=== PATIENT | male | born 1940 | race African-American/Black ===

== ENCOUNTER → 2017-08-12 | Outpatient (CLI) | payer MEDICARE, MEDICAID ==
[~2017-08-12] MED LIST: ACET-3161 PO; ALLO100T PO; AMLO1CAP2 PO; BICA50TA2 PO; CARV6.2548 PO; DOXA2TAB2 PO
== END | disposition home or self-care (01) ==
LOC: CARD 09:55
PROVIDERS: ATTEND Psychiatry & Neurology Neurology
DX: F03.90 Unspecified dementia, unspecified severity, without behavioral disturbance, psychotic disturbance, mood disturbance, and anxiety (principal); I12.9 Hypertensive chronic kidney disease with stage 1 through stage 4 chronic kidney disease, or unspecified chronic kidney disease; N18.9 Chronic kidney disease, unspecified; Z85.46 Personal history of malignant neoplasm of prostate

== ENCOUNTER 2019-02-01 15:06 | Emergency (ER) | payer MEDICARE, MEDICAID ==
[~2019-02-01] VITALS: Ht 172.7 cm; Wt 64.0 kg
[~2019-02-01 15:06] MED LIST changes: -BICA50TA2 PO; +BICA50TA48 PO
[2019-02-01 16:39] LABS: CLARITY URINE CLEAR (CLEAR); COLOR URINE YELLOW (YELLOW); KETONES URINE NEGATIVE (NEGATIVE); LEUKOCYTE ESTERASE URINE TRACE (NEGATIVE); NITRITE URINE NEGATIVE (NEGATIVE); OCCULT BLOOD URINE NEGATIVE (NEGATIVE); PH URINE 8.5 (4.5-8.0); PROTEIN URINE 3+ (NEGATIVE); SPECIFIC GRAVITY URINE 1.008 (1.005-1.030); UROBILINOGEN URINE 0.2 E.U./dL (0.2-1.0)
[2019-02-01 17:19] LABS: BASOPHILS % 1.5 % (0.0-2.0); HEMATOCRIT. 25.8 % (42.0-52.0); HEMOGLOBIN. 8.5 g/dL (14.0-18.0); LYMPHOCYTES % 23.8 % (20.0-50.0); MEAN CORPUSCULAR HEMOGLOBIN 31.6 pg (28.0-32.0); MEAN CORPUSCULAR VOLUME 96.2 fL (80.0-94.0); MEAN PLATELET VOLUME 9.8 fl (7.4-10.4); MONOCYTES % 7.6 % (2.0-8.0); NEUTROPHILS % 65.1 % (40.0-76.0); PLATELET 159 x1000/uL (130-400); RED BLOOD CELL COUNT 2.68 mill/uL (4.7-6.1); RED CELL DISTRIBUTION WIDTH 16.7 % (11.6-14.6)
[2019-02-01 17:24] LABS: CHLORIDE 103 mEq/L (98-107)
[2019-02-01 17:28] LABS: INR 1.1
[2019-02-01] MEDS ORDERED: SODIUM CHLORIDE 0.9% 1000ML BAG (SEPSIS BOLUS) IV ONE (17:45)
[2019-02-01 21:31] VITALS: BP 140/71
== END 2019-02-01 21:33 | disposition home or self-care (01) ==
LOC: ER 15:06 → CANBEDREQ 22:06
DX: I12.0 Hypertensive chronic kidney disease with stage 5 chronic kidney disease or end stage renal disease (principal); I95.9 Hypotension, unspecified; N18.6 End stage renal disease; D63.1 Anemia in chronic kidney disease; F03.90 Unspecified dementia, unspecified severity, without behavioral disturbance, psychotic disturbance, mood disturbance, and anxiety; I25.10 Atherosclerotic heart disease of native coronary artery without angina pectoris; F17.210 Nicotine dependence, cigarettes, uncomplicated; Z85.9 Personal history of malignant neoplasm, unspecified; Z99.2 Dependence on renal dialysis; Z71.6 Tobacco abuse counseling
CPT/HCPCS: 36415; 71045; 80053; 81003; 83605; 84145; 84484; 85025; 85610; 87040; 87086; 93005; 99284; J7030

== ENCOUNTER → 2019-04-20 | Day surgery (SDC) | payer MEDICARE, MEDICAID ==
[~2019-04-20] VITALS: Ht 172.7 cm; Wt 56.7 kg
[~2019-04-20] MED LIST changes: +BACITRACIN 15GM TUBE TOP ONE; +BACITRACIN 50,000 UNITS/VIAL ONE; +BUPIVACAINE HCL/PF 0.5% (5MG/ML) 10ML ONE; +CALC-1042 PO; +CALC0.253 PO; +CEFAZOLIN SODIUM 1000MG/VIAL ONE; +CHOL500051 PO; +DOCU-272 PO; +DONE5TAB33 PO; +FENTANYL CITRATE/PF 50MCG/ML 2ML VIAL ONE; +FOLI-43 PO; +FURO40TA5 PO; +GABA-290 PO; +HEPARIN 1000 UNITS/ML 10ML ONE; +HEPARIN SODIUM 1,000 UNIT/1ML VIAL IV ONE; +LIDOCAINE HCL 1% 20ML VIAL (Pyxis) INJ ONE; +LIDOCAINE HCL/PF 1% 10 MG/ML 5ML VIAL ONE; +MAGN400C PO; +MIDAZOLAM HCL 2 MG/2 ML VIAL ONE; +NORMAL SALINE 0.9% 10 ML SYR ONE; +OMEP40CA34 PO; +PROPOFOL 200MG/20ML VIAL IV ONE; +SODI650T PO; +SODIUM CHLORIDE 0.9% 500 ML IV NR; +TAMS-11 PO; +THROMBIN (BOVINE) 5000 UNITS/VIAL TOP ONE
[2019-04-20 10:25] LABS: BASOPHILS % 1.3 % (0.0-2.0); EOSINOPHILS % 1.9 % (0.0-5.0); HEMATOCRIT. 44.9 % (42.0-52.0); HEMOGLOBIN. 14.7 g/dL (14.0-18.0); LYMPHOCYTES % 32.2 % (20.0-50.0); MEAN CORPUSCULAR HEMOGLOBIN 30.7 pg (28.0-32.0); MEAN CORPUSCULAR VOLUME 93.9 fL (80.0-94.0); MEAN PLATELET VOLUME 10.6 fl (7.4-10.4); NEUTROPHILS % 51.6 % (40.0-76.0); PLATELET 103 x1000/uL (130-400); RED BLOOD CELL COUNT 4.78 mill/uL (4.7-6.1); RED CELL DISTRIBUTION WIDTH 15.3 % (11.6-14.6)
[2019-04-20 10:40] LABS: PARTIAL THROMBOPLASTIN TIME 24.9 sec (23.4-31.0); PROTHROMBIN TIME 10.8 sec (9.6-11.0)
== END | disposition home or self-care (01) ==
LOC: OR 09:27
PROVIDERS: ATTEND Surgery Vascular Surgery
DX: I12.0 Hypertensive chronic kidney disease with stage 5 chronic kidney disease or end stage renal disease (principal); N18.6 End stage renal disease; M10.9 Gout, unspecified; K21.9 Gastro-esophageal reflux disease without esophagitis; I25.10 Atherosclerotic heart disease of native coronary artery without angina pectoris; F17.210 Nicotine dependence, cigarettes, uncomplicated; Z99.2 Dependence on renal dialysis; Z79.899 Other long term (current) drug therapy; Z72.89 Other problems related to lifestyle; Z82.49 Family history of ischemic heart disease and other diseases of the circulatory system
CPT/HCPCS: 36415; 36830; 71045; 80048; 85025; 85610; 85730; 93005; C1768; J0690; J1644; J2704; J3010; J3490; J7040; J2250

== ENCOUNTER 2019-06-26 00:02 | Emergency (ER) | payer MEDICARE, MEDICAID ==
[~2019-06-26] VITALS: Ht 172.7 cm; Wt 59.0 kg
[~2019-06-26 00:02] MED LIST changes: -BACITRACIN 15GM TUBE TOP ONE; -BACITRACIN 50,000 UNITS/VIAL ONE; -BICA50TA48 PO; -BUPIVACAINE HCL/PF 0.5% (5MG/ML) 10ML ONE; -CEFAZOLIN SODIUM 1000MG/VIAL ONE; -DOXA2TAB2 PO; -FENTANYL CITRATE/PF 50MCG/ML 2ML VIAL ONE; -HEPARIN 1000 UNITS/ML 10ML ONE; -HEPARIN SODIUM 1,000 UNIT/1ML VIAL IV ONE; -LIDOCAINE HCL 1% 20ML VIAL (Pyxis) INJ ONE; -LIDOCAINE HCL/PF 1% 10 MG/ML 5ML VIAL ONE; -MIDAZOLAM HCL 2 MG/2 ML VIAL ONE; -NORMAL SALINE 0.9% 10 ML SYR ONE; +OMEP40CA12 PO; -OMEP40CA34 PO; -PROPOFOL 200MG/20ML VIAL IV ONE; -SODIUM CHLORIDE 0.9% 500 ML IV NR; -THROMBIN (BOVINE) 5000 UNITS/VIAL TOP ONE
[2019-06-26 02:07] VITALS: BP 135/64
== END 2019-06-26 02:11 | disposition home or self-care (01) ==
LOC: ER 01:22
DX: T82.41XA Breakdown (mechanical) of vascular dialysis catheter, initial encounter (principal); Y83.2 Surgical operation with anastomosis, bypass or graft as the cause of abnormal reaction of the patient, or of later complication, without mention of misadventure at the time of the procedure; F03.90 Unspecified dementia, unspecified severity, without behavioral disturbance, psychotic disturbance, mood disturbance, and anxiety; M10.9 Gout, unspecified; N40.0 Benign prostatic hyperplasia without lower urinary tract symptoms; Y92.9 Unspecified place or not applicable; I12.0 Hypertensive chronic kidney disease with stage 5 chronic kidney disease or end stage renal disease; N18.6 End stage renal disease; Z99.2 Dependence on renal dialysis
CPT/HCPCS: 99283

== ENCOUNTER 2020-04-09 09:41 | Inpatient (IN) | payer MEDICARE, MEDICAID ==
[~2020-04-09] VITALS: Ht 172.7 cm; Wt 49.4 kg
[~2020-04-09 09:41] MED LIST changes: -ACET-3161 PO; -AMLO1CAP2 PO; +AZIT500T8 PO; -CARV6.2548 PO; -CHOL500051 PO; -DOCU-272 PO; +FERR325T23 PO; -FURO40TA5 PO; +LIPA1CAP27 PO; -SODI650T PO; -TAMS-11 PO; +VIT1CAPS26 PO
[2020-04-09 12:00] LABS: BASOPHILS % 0.9 % (0.0-2.0); EOSINOPHILS % 0.3 % (0.0-5.0); HEMATOCRIT. 38.4 % (42.0-52.0); HEMOGLOBIN. 12.3 g/dL (14.0-18.0); LYMPHOCYTES % 12.7 % (20.0-50.0); MEAN CORPUSCULAR HEMOGLOBIN 31.3 pg (28.0-32.0); MEAN CORPUSCULAR VOLUME 97.4 fL (80.0-94.0); MEAN PLATELET VOLUME 10.4 fl (7.4-10.4); MONOCYTES % 8.7 % (2.0-8.0); NEUTROPHILS % 77.4 % (40.0-76.0); PLATELET 107 x1000/uL (130-400); RED BLOOD CELL COUNT 3.94 mill/uL (4.7-6.1); RED CELL DISTRIBUTION WIDTH 16.4 % (11.6-14.6)
[2020-04-09 12:08] LABS: INR 1.1; PARTIAL THROMBOPLASTIN TIME 28.5 sec (23.4-31.0); PROTHROMBIN TIME 11.2 sec (9.6-11.0)
[2020-04-09 12:14] LABS: CHLORIDE 102 mEq/L (98-107)
[2020-04-09] MEDS ORDERED: CEFTRIAXONE 1 G PREMIX 50 ML IV ONE (12:15)
[2020-04-09] MEDS ORDERED: AZITHROMYCIN 500 MG in DEXT 5% WATER 250 ML IV ONE (12:15)
[2020-04-09] MEDS ORDERED: SODIUM BICARBONATE 8.4% 1 MEQ/ML 50ML SYR IV ONE (12:45)
[2020-04-09] MEDS ORDERED: SODIUM POLYSTYRENE SULFONATE 15 G/60 ML BOT PO ONE (12:45)
[2020-04-09] MEDS ORDERED: MEMA5TAB7 PO (14:40)
[2020-04-09] MEDS ORDERED: QUET50TA PO (14:40)
[2020-04-09] MEDS ORDERED: AMLO5TAB88 PO (14:40)
[2020-04-09] MEDS ORDERED: ONDANSETRON HCL 4MG/2ML INJ IV PRN (16:00)
[2020-04-09] MEDS ORDERED: ACETAMINOPHEN 325MG TABLET PO PRN (16:00)
[2020-04-09 20:00] VITALS: BP 110/77
[2020-04-09 21:00] VITALS: BP 110/77
[2020-04-09] MEDS ORDERED: TAMS-11 PO (22:31)
[2020-04-09] MEDS ORDERED: CALC1TAB99 PO (22:32)
[2020-04-09] MEDS ORDERED: ERGO2000 PO (22:34)
[2020-04-09] MEDS ORDERED: NUT.237L64 PO (22:38)
[2020-04-09] MEDS ORDERED: CYAN-50 INJ (22:38)
[2020-04-10] VITALS: BP 111/72
[2020-04-10 03:30] VITALS: BP 122/69
[2020-04-10 06:29] LABS: BASOPHILS % 1.5 % (0.0-2.0); EOSINOPHILS % 1.5 % (0.0-5.0); HEMATOCRIT. 36.4 % (42.0-52.0); HEMOGLOBIN. 11.5 g/dL (14.0-18.0); MEAN CORPUSCULAR HEMOGLOBIN 30.9 pg (28.0-32.0); MEAN CORPUSCULAR VOLUME 97.4 fL (80.0-94.0); MONOCYTES % 8.5 % (2.0-8.0); NEUTROPHILS % 68.5 % (40.0-76.0); PLATELET 110 x1000/uL (130-400); RED BLOOD CELL COUNT 3.73 mill/uL (4.7-6.1); RED CELL DISTRIBUTION WIDTH 16.3 % (11.6-14.6)
[2020-04-10 08:00] VITALS: BP 116/78
[2020-04-10] MEDS: DOCUSATE SODIUM 250MG CAPSULE PO SCH ×2 (09:00→09:13)
[2020-04-10] MEDS: PANTOPRAZOLE SODIUM 40 MG/VIAL IV SCH (09:13)
[2020-04-10 12:00] VITALS: BP 123/72
[2020-04-10] MEDS ORDERED: CEFTRIAXONE 1 G PREMIX 50 ML IV SCH (12:00)
[2020-04-10] MEDS: CEFTRIAXONE 1,000 MG in DEXTROSE 5% WATER 50 ML IV SCH (12:34)
[2020-04-10] MEDS: AZITHROMYCIN 250 MG TABLET PO SCH (12:34)
[2020-04-10 13:32] LABS: CHLORIDE 100 mEq/L (98-107)
[2020-04-10 14:43] LABS: HEPATITIS A AB IGM NEGATIVE (NEGATIVE)
[2020-04-10 16:00] VITALS: BP 123/77
[2020-04-10] MEDS: AMLODIPINE 5MG TABLET PO SCH (18:09)
[2020-04-10 20:00] VITALS: BP 115/65
[2020-04-11] VITALS: BP 129/74
[2020-04-11 04:00] VITALS: BP 121/70
[2020-04-11 08:00] VITALS: BP 123/69
[2020-04-11 08:20] LABS: BASOPHILS % 1.4 % (0.0-2.0); EOSINOPHILS % 1.9 % (0.0-5.0); HEMATOCRIT. 38.3 % (42.0-52.0); HEMOGLOBIN. 12.4 g/dL (14.0-18.0); LYMPHOCYTES % 23.4 % (20.0-50.0); MEAN CORPUSCULAR HEMOGLOBIN 31.1 pg (28.0-32.0); MEAN CORPUSCULAR VOLUME 96.4 fL (80.0-94.0); MEAN PLATELET VOLUME 9.9 fl (7.4-10.4); MONOCYTES % 13.5 % (2.0-8.0); NEUTROPHILS % 59.8 % (40.0-76.0); PLATELET 110 x1000/uL (130-400); RED BLOOD CELL COUNT 3.97 mill/uL (4.7-6.1); RED CELL DISTRIBUTION WIDTH 16.7 % (11.6-14.6)
[2020-04-11 09:07] LABS: FOLIC ACID (FOLATE) SERUM >20 ng/mL ng/mL (>5.38)
[2020-04-11 09:17] LABS: CHLORIDE 100 mEq/L (98-107)
[2020-04-11 09:18] LABS: VITAMIN B12 SERUM >2000 pg/mL pg/mL (211-911)
[2020-04-11] MEDS: DOCUSATE SODIUM 250MG CAPSULE PO SCH (10:10)
[2020-04-11] MEDS: PANTOPRAZOLE SODIUM 40 MG/VIAL IV SCH (10:10)
[2020-04-11] MEDS: AMLODIPINE 5MG TABLET PO SCH (10:11)
[2020-04-11] MEDS: CEFTRIAXONE 1,000 MG in DEXTROSE 5% WATER 50 ML IV SCH (11:28)
[2020-04-11] MEDS: AZITHROMYCIN 250 MG TABLET PO SCH (11:28)
[2020-04-11 12:00] VITALS: BP 115/65
[2020-04-11 12:21] LABS: FERRITIN 1277 ng/mL (22-322)
[2020-04-11 16:00] VITALS: BP 118/21
[2020-04-11 20:00] VITALS: BP 120/65
[2020-04-11] MEDS ORDERED: QUETIAPINE FUMARATE 50MG TABLET PO SCH (23:29)
[2020-04-12] VITALS: BP 130/71
[2020-04-12 04:00] VITALS: BP 106/64
[2020-04-12 06:22] LABS: HEMOGLOBIN. 12.2 g/dL (14.0-18.0); MEAN CORPUSCULAR HEMOGLOBIN 31.4 pg (28.0-32.0); MEAN PLATELET VOLUME 10.5 fl (7.4-10.4); PLATELET 118 x1000/uL (130-400); RED BLOOD CELL COUNT 3.88 mill/uL (4.7-6.1); RED CELL DISTRIBUTION WIDTH 16.4 % (11.6-14.6)
[2020-04-12 08:00] VITALS: BP 116/67
[2020-04-12] MEDS ORDERED: DONEPEZIL HCL 5MG TABLET PO SCH (09:00)
[2020-04-12] MEDS: DOCUSATE SODIUM 250MG CAPSULE PO SCH (10:28)
[2020-04-12] MEDS: PANTOPRAZOLE SODIUM 40 MG/VIAL IV SCH (10:28)
[2020-04-12] MEDS: AMLODIPINE 5MG TABLET PO SCH (10:29)
[2020-04-12 10:48] LABS: PLATELET ESTIMATE SLIGHTLY DECREASED
[2020-04-12] MEDS: AZITHROMYCIN 250 MG TABLET PO SCH (11:38)
[2020-04-12] MEDS: CEFTRIAXONE 1,000 MG in DEXTROSE 5% WATER 50 ML IV SCH (11:38)
[2020-04-12 12:00] VITALS: BP 115/65
[2020-04-12] MEDS ORDERED: MEMANTINE HCL 5MG TABLET PO SCH (15:00)
[2020-04-12 16:00] VITALS: BP 116/66
[2020-04-12 17:40] VITALS: BP 116/66
[2020-04-12] MEDS ORDERED: QUETIAPINE FUMARATE 50MG TABLET PO SCH (21:00)
[2020-04-14 16:22] LABS: HEPATITIS B SURFACE ANTIGEN NEGATIVE
== END 2020-04-12 19:20 | disposition home or self-care (01) | DRG 377 ==
LOC: ER 09:59 → 7EST 17:57 → EDBEDREQ 18:04 → EDBEDREQTM 18:04 → ENRESERV 19:48 → 5WST 04-10 03:15
PROVIDERS: ADMIT Internal Medicine; ATTEND Internal Medicine
DX: K62.5 Hemorrhage of anus and rectum (principal); J18.9 Pneumonia, unspecified organism; N18.6 End stage renal disease; J96.00 Acute respiratory failure, unspecified whether with hypoxia or hypercapnia; E87.1 Hypo-osmolality and hyponatremia; K86.1 Other chronic pancreatitis; I12.0 Hypertensive chronic kidney disease with stage 5 chronic kidney disease or end stage renal disease; E44.1 Mild protein-calorie malnutrition; J90 Pleural effusion, not elsewhere classified; Z68.1 Body mass index [BMI] 19.9 or less, adult; E87.5 Hyperkalemia; K64.9 Unspecified hemorrhoids; D69.6 Thrombocytopenia, unspecified; K83.8 Other specified diseases of biliary tract; D53.9 Nutritional anemia, unspecified; F02.80 Dementia in other diseases classified elsewhere, unspecified severity, without behavioral disturbance, psychotic disturbance, mood disturbance, and anxiety; F10.10 Alcohol abuse, uncomplicated; G20 Parkinson's disease; K57.93 Diverticulitis of intestine, part unspecified, without perforation or abscess with bleeding; I25.10 Atherosclerotic heart disease of native coronary artery without angina pectoris; K57.90 Diverticulosis of intestine, part unspecified, without perforation or abscess without bleeding; Z20.828 Contact with and (suspected) exposure to other viral communicable diseases; Z99.2 Dependence on renal dialysis; Z85.46 Personal history of malignant neoplasm of prostate; Z79.899 Other long term (current) drug therapy
CPT/HCPCS: 36415; 71045; 76700; 80048; 80053; 80061; 82270; 82607; 82728; 82746; 83540; 83550; 83605; 83880; 84443; 84484; 85025; 86705; 86709; 86803; 86850; 86900; 87340; 93005; 93306; 96365; 97162; 99285; C1893; C9113; J0456; J0696; J3490; J7060; U0003

== ENCOUNTER 2021-06-14 09:57 | Inpatient (IN) | payer MEDICARE, MEDICAID ==
[~2021-06-14] VITALS: Ht 172.7 cm; Wt 63.7 kg
[~2021-06-14 09:57] MED LIST changes: +ASPI-1497 PO; -AZIT500T8 PO; +CLOP75TA33 MT; +CYAN-50 INJ; +ERGO2000 PO; -FERR325T23 PO; -LIPA1CAP27 PO; -MAGN400C PO; +MEMA5TAB7 PO; +METO25TA6 PO; -OMEP40CA12 PO; +OMEP40CA20 PO; +PHEN51CR24 TP; +QUET50TA PO; +TAMS-11 PO; -VIT1CAPS26 PO
[2021-06-14] MEDS ORDERED: SODIUM CHLORIDE 0.9% 1000ML BAG (SEPSIS BOLUS) IV ONE (10:30)
[2021-06-14 10:50] LABS: BASOPHILS % 0.7 % (0.0-2.0); HEMATOCRIT. 36.8 % (42.0-52.0); HEMOGLOBIN. 11.5 g/dL (14.0-18.0); MEAN CORPUSCULAR HEMOGLOBIN 28.8 pg (28.0-32.0); MEAN CORPUSCULAR VOLUME 92.3 fL (80.0-94.0); MEAN PLATELET VOLUME 9.3 fl (7.4-10.4); MONOCYTES % 5.8 % (2.0-8.0); NEUTROPHILS % 83.5 % (40.0-76.0); PLATELET 207 x1000/uL (130-400); RED BLOOD CELL COUNT 3.99 mill/uL (4.7-6.1); RED CELL DISTRIBUTION WIDTH 14.5 % (11.6-14.6)
[2021-06-14 10:56] LABS: CHLORIDE 98 mEq/L (98-107)
[2021-06-14] MEDS ORDERED: POTASSIUM CHLORIDE INJ 40 MEQ in DEXT 5% WATER 500 ML IV ONE (11:30)
[2021-06-14] MEDS ORDERED: VANCOMYCIN 1G PREMIX 200 ML IV ONE (11:30)
[2021-06-14] MEDS ORDERED: PIPERACILLIN/TAZ 3.375G PREMIX 50 ML IV ONE (11:30)
[2021-06-14] MEDS: KCL 20MEQ/100ML X 2 FOR TOTAL KCL 40MEQ/200ML IV SCH ×2 (11:45→13:45)
[2021-06-14] MEDS ORDERED: NOREPINEPHRINE 8MG/250ML PMX 250 ML IV STA (12:50)
[2021-06-14] MEDS ORDERED: NOREPINEPHRINE 8 MG in DEXTROSE 5% WATER 250 ML IV PRN (13:45)
[2021-06-14] MEDS ORDERED: DIPHENHYDRAMINE 50MG/ML VIAL IV PRN (17:15)
[2021-06-14] MEDS ORDERED: CLONIDINE 0.1MG TABLET PO PRN (17:15)
[2021-06-14] MEDS ORDERED: DEXT 5%/0.45% NACL 1000ML 1,000 ML IV SCH (17:15)
[2021-06-14] MEDS ORDERED: ONDANSETRON HCL 4MG/2ML INJ IV PRN (17:15)
[2021-06-14] MEDS ORDERED: ACETAMINOPHEN 325MG TABLET PO PRN ×2 (17:15)
[2021-06-14] MEDS: CEFEPIME 1,000 MG in DEXTROSE 5% WATER 50 ML IV SCH (20:48)
[2021-06-15 01:30] VITALS: BP 165/77
[2021-06-15 04:00] VITALS: BP 112/49
[2021-06-15 08:00] VITALS: BP 121/61
[2021-06-15 12:00] VITALS: BP 133/68
[2021-06-15] MEDS: VANCOMYCIN 1000MG/20ML ORAL SOLN PO SCH ×2 (12:31→18:22)
[2021-06-15] MEDS: DEXT 5%/0.45% NACL 1000ML 1,000 ML IV SCH (12:33)
[2021-06-15 12:53] LABS: BASOPHILS % 0.8 % (0.0-2.0); EOSINOPHILS % 1.9 % (0.0-5.0); HEMATOCRIT. 30.9 % (42.0-52.0); HEMOGLOBIN. 10.1 g/dL (14.0-18.0); LYMPHOCYTES % 7.7 % (20.0-50.0); MEAN CORPUSCULAR HEMOGLOBIN 29.8 pg (28.0-32.0); MEAN CORPUSCULAR VOLUME 90.9 fL (80.0-94.0); MEAN PLATELET VOLUME 9.5 fl (7.4-10.4); MONOCYTES % 7.9 % (2.0-8.0); NEUTROPHILS % 81.7 % (40.0-76.0); PLATELET 152 x1000/uL (130-400); RED CELL DISTRIBUTION WIDTH 14.3 % (11.6-14.6)
[2021-06-15] MEDS ORDERED: POTASSIUM CHLORIDE 20MEQ/PACKET PO NR (15:45)
[2021-06-15 16:00] VITALS: BP 147/85
[2021-06-15 20:00] VITALS: BP 96/49
[2021-06-15] MEDS: CEFEPIME 1,000 MG in DEXTROSE 5% WATER 50 ML IV SCH (21:07)
[2021-06-15] MEDS: CARVEDILOL 6.25 MG TABLET PO SCH (21:37)
[2021-06-16 00:05] VITALS: BP 124/65
[2021-06-16] MEDS: VANCOMYCIN 1000MG/20ML ORAL SOLN PO SCH ×4 (00:56→17:33)
[2021-06-16 04:00] VITALS: BP 120/78
[2021-06-16 08:00] VITALS: BP 149/79
[2021-06-16 08:29] LABS: BASOPHILS % 0.6 % (0.0-2.0); EOSINOPHILS % 2.3 % (0.0-5.0); HEMATOCRIT. 34.8 % (42.0-52.0); HEMOGLOBIN. 11.3 g/dL (14.0-18.0); LYMPHOCYTES % 8.5 % (20.0-50.0); MEAN CORPUSCULAR HEMOGLOBIN 29.8 pg (28.0-32.0); MEAN CORPUSCULAR VOLUME 91.6 fL (80.0-94.0); MEAN PLATELET VOLUME 9.6 fl (7.4-10.4); MONOCYTES % 7.9 % (2.0-8.0); NEUTROPHILS % 80.7 % (40.0-76.0); PLATELET 171 x1000/uL (130-400); RED CELL DISTRIBUTION WIDTH 14.1 % (11.6-14.6)
[2021-06-16] MEDS: CARVEDILOL 6.25 MG TABLET PO SCH ×2 (10:15→20:39)
[2021-06-16] MEDS: DEXT 5%/0.45% NACL 1000ML 1,000 ML IV SCH (10:17)
[2021-06-16 12:00] VITALS: BP 119/68
[2021-06-16 16:00] VITALS: BP 150/77
[2021-06-16 20:10] VITALS: BP 128/88
[2021-06-16] MEDS: CEFEPIME 1,000 MG in DEXTROSE 5% WATER 50 ML IV SCH (20:39)
[2021-06-16] MEDS ORDERED: AMIODARONE HCL 150 MG in DEXT 5% WATER 100 ML IV NR (23:00)
[2021-06-16] MEDS: AMIODARONE HCL 900 MG in DEXT 5% WATER 482 ML IV PRN (23:42)
[2021-06-17] VITALS (16 sets, daily range): BP systolic 97–159; BP diastolic 47–92
[2021-06-17] MEDS: VANCOMYCIN 1000MG/20ML ORAL SOLN PO SCH ×4 (00:08→18:23)
[2021-06-17 07:27] LABS: BASOPHILS % 0.6 % (0.0-2.0); EOSINOPHILS % 2.1 % (0.0-5.0); HEMOGLOBIN. 9.7 g/dL (14.0-18.0); LYMPHOCYTES % 9.7 % (20.0-50.0); MEAN CORPUSCULAR HEMOGLOBIN 28.7 pg (28.0-32.0); MEAN PLATELET VOLUME 9.5 fl (7.4-10.4); MONOCYTES % 7.8 % (2.0-8.0); NEUTROPHILS % 79.8 % (40.0-76.0); PLATELET 174 x1000/uL (130-400); RED BLOOD CELL COUNT 3.37 mill/uL (4.7-6.1); RED CELL DISTRIBUTION WIDTH 14.2 % (11.6-14.6)
[2021-06-17] MEDS: CARVEDILOL 12.5MG TABLET PO SCH ×2 (10:02→20:16)
[2021-06-17] MEDS: DEXT 5%/0.45% NACL 1000ML 1,000 ML IV SCH (10:11)
[2021-06-17] MEDS ORDERED: POTASSIUM CHLORIDE 20MEQ/PACKET PO NR (15:45)
[2021-06-17] MEDS: CEFEPIME 1,000 MG in DEXTROSE 5% WATER 50 ML IV SCH (20:16)
[2021-06-18] VITALS (14 sets, daily range): BP systolic 105–163; BP diastolic 47–82
[2021-06-18] MEDS: VANCOMYCIN 1000MG/20ML ORAL SOLN PO SCH ×5 (00:39→23:38)
[2021-06-18] MEDS: AMIODARONE HCL 900 MG in DEXT 5% WATER 482 ML IV PRN (02:30)
[2021-06-18 08:36] LABS: PHOSPHORUS 3.7 mg/dL (2.5-4.9)
[2021-06-18] MEDS: CARVEDILOL 12.5MG TABLET PO SCH ×2 (09:05→21:22)
[2021-06-18] MEDS ORDERED: POTASSIUM CHLORIDE 20MEQ TABLET SR PO NR (10:00)
[2021-06-18] MEDS: CEFEPIME 1,000 MG in DEXTROSE 5% WATER 50 ML IV SCH (21:22)
[2021-06-18] MEDS: EPOETIN ALFA-EPBX 10,000 UNIT/ML VIAL SUBCUT SCH (21:57)
[2021-06-19] VITALS (15 sets, daily range): BP systolic 107–169; BP diastolic 52–94
[2021-06-19] MEDS: VANCOMYCIN 1000MG/20ML ORAL SOLN PO SCH ×4 (05:50→23:05)
[2021-06-19] MEDS: CARVEDILOL 12.5MG TABLET PO SCH (08:07)
[2021-06-19] MEDS ORDERED: AMIODARONE HCL 200 MG TABLET PO SCH (11:30)
[2021-06-19 11:59] LABS: BASOPHILS % 0.8 % (0.0-2.0); EOSINOPHILS % 2.2 % (0.0-5.0); HEMATOCRIT. 29.8 % (42.0-52.0); HEMOGLOBIN. 9.9 g/dL (14.0-18.0); LYMPHOCYTES % 9.3 % (20.0-50.0); MEAN CORPUSCULAR VOLUME 90.5 fL (80.0-94.0); MEAN PLATELET VOLUME 9.7 fl (7.4-10.4); MONOCYTES % 8.8 % (2.0-8.0); NEUTROPHILS % 78.9 % (40.0-76.0); PLATELET 177 x1000/uL (130-400); RED BLOOD CELL COUNT 3.29 mill/uL (4.7-6.1); RED CELL DISTRIBUTION WIDTH 14.8 % (11.6-14.6)
[2021-06-19] MEDS ORDERED: SOTALOL HCL 80MG TABLET PO NR ×2 (12:30→16:30)
[2021-06-19] MEDS: CEFEPIME 1,000 MG in DEXTROSE 5% WATER 50 ML IV SCH (21:11)
[2021-06-19] MEDS: SOTALOL HCL 80MG TABLET PO SCH (21:11)
[2021-06-20] VITALS (16 sets, daily range): BP systolic 98–158; BP diastolic 43–81
[2021-06-20] MEDS: VANCOMYCIN 1000MG/20ML ORAL SOLN PO SCH ×3 (05:26→17:38)
[2021-06-20] MEDS: SOTALOL HCL 80MG TABLET PO SCH ×2 (08:57→20:09)
[2021-06-20] MEDS ORDERED: DONEPEZIL HCL 5MG TABLET PO SCH (15:45)
[2021-06-20] MEDS ORDERED: QUETIAPINE FUMARATE 50MG TABLET PO SCH (15:45)
[2021-06-20] MEDS ORDERED: MEMANTINE HCL 5MG TABLET PO SCH (15:45)
[2021-06-20] MEDS ORDERED: SOTA80TA MT (17:27)
[2021-06-20] MEDS: CEFEPIME 1,000 MG in DEXTROSE 5% WATER 50 ML IV SCH (19:30)
[2021-06-20] MEDS: EPOETIN ALFA-EPBX 10,000 UNIT/ML VIAL SUBCUT SCH (20:08)
== END 2021-06-20 23:23 | disposition home or self-care (01) | DRG 70 ==
LOC: ER 10:04 → EDBEDREQTM 12:34 → EDBEDREQSVC 13:35 → EDBEDREQ 13:35 → MICUSO 15:40 → 8WST 06-15 01:00 → 3WST 06-16 23:18
PROVIDERS: ADMIT Internal Medicine; ATTEND Internal Medicine
PROC: 05HY33Z Insertion of Infusion Device into Upper Vein, Percutaneous Approach (ICD-10-PCS; principal; 2021-06-14)
PROC: B54MZZA Ultrasonography of Right Upper Extremity Veins, Guidance (ICD-10-PCS; 2021-06-14)
PROC: 3E1M39Z Irrigation of Peritoneal Cavity using Dialysate, Percutaneous Approach (ICD-10-PCS; 2021-06-18)
PROC: 3E1M39Z Irrigation of Peritoneal Cavity using Dialysate, Percutaneous Approach (ICD-10-PCS; 2021-06-20)
DX: G93.41 Metabolic encephalopathy (principal); N18.6 End stage renal disease; I50.43 Acute on chronic combined systolic (congestive) and diastolic (congestive) heart failure; E87.1 Hypo-osmolality and hyponatremia; I47.2 Ventricular tachycardia; I13.2 Hypertensive heart and chronic kidney disease with heart failure and with stage 5 chronic kidney disease, or end stage renal disease; I48.92 Unspecified atrial flutter; A09 Infectious gastroenteritis and colitis, unspecified; I48.91 Unspecified atrial fibrillation; Z20.822 Contact with and (suspected) exposure to COVID-19; E11.22 Type 2 diabetes mellitus with diabetic chronic kidney disease; E78.00 Pure hypercholesterolemia, unspecified; E87.6 Hypokalemia; F03.90 Unspecified dementia, unspecified severity, without behavioral disturbance, psychotic disturbance, mood disturbance, and anxiety; D64.9 Anemia, unspecified; I27.20 Pulmonary hypertension, unspecified; E78.5 Hyperlipidemia, unspecified; E88.09 Other disorders of plasma-protein metabolism, not elsewhere classified; I95.9 Hypotension, unspecified; Z99.2 Dependence on renal dialysis; Z79.899 Other long term (current) drug therapy; Z79.82 Long term (current) use of aspirin
CPT/HCPCS: 36415; 70490; 71045; 76937; 80048; 80053; 83605; 83735; 84100; 84145; 84484; 85025; 87426; 93005; 93306; 99291; C1725; C1769; J0282; J0692; J0885; J2543; J3370; J3480; J7030; J7060

== ENCOUNTER 2021-07-02 10:26 | Inpatient (IN) | payer MEDICARE, MEDICAID ==
[~2021-07-02] VITALS: Ht 162.6 cm; Wt 68.6 kg
[~2021-07-02 10:26] MED LIST changes: +SOTA80TA MT
[2021-07-02 12:45] LABS: BASOPHILS % 0.3 % (0.0-2.0); EOSINOPHILS % 0.4 % (0.0-5.0); HEMATOCRIT. 38.5 % (42.0-52.0); HEMOGLOBIN. 11.9 g/dL (14.0-18.0); LYMPHOCYTES % 7.8 % (20.0-50.0); MEAN CORPUSCULAR HEMOGLOBIN 28.8 pg (28.0-32.0); MEAN CORPUSCULAR VOLUME 93.3 fL (80.0-94.0); MEAN PLATELET VOLUME 9.8 fl (7.4-10.4); MONOCYTES % 4.1 % (2.0-8.0); NEUTROPHILS % 87.4 % (40.0-76.0); PLATELET 203 x1000/uL (130-400); RED BLOOD CELL COUNT 4.12 mill/uL (4.7-6.1); RED CELL DISTRIBUTION WIDTH 16.2 % (11.6-14.6)
[2021-07-02 12:52] LABS: CHLORIDE 98 mEq/L (98-107)
[2021-07-02] MEDS ORDERED: [UNRECOGNIZED DRUG - REMARK] XX SCH (13:00)
[2021-07-02] MEDS ORDERED: VANCOMYCIN 1.25GM PMX (XELLIA) 250 ML IV NR (14:00)
[2021-07-02] MEDS ORDERED: NOREPINEPHRINE 8MG/250ML PMX 250 ML IV ONE (14:15)
[2021-07-02] MEDS ORDERED: ACETAMINOPHEN 325MG TABLET PO ONE (14:15)
[2021-07-02 14:24] LABS: BG BASE EXCESS -7.7 mmol/L (-2.0-2.0); BG CARBOXYHEMOGLOBIN 0.5 % (0.5-1.5); BG DEOXYHEMOGLOBIN 2.5 % (0.0-5.0); BG FRACTION INSPIRED OXYGEN 36; BG HCO3 ACT 17.2 mmol/L (22.0-26.0); BG METHEMOGLOBIN 0.2 % (0.0-1.5); BG OXYGEN SATURATION 97.5 % (92.0-98.5); BG OXYHEMOGLOBIN 96.8 % (94.0-97.0); BG PH 7.335 (7.350-7.450); BG PO2 103.6 mmHg (75.0-100.0); BG SAMPLE SITE RIGHT RADIAL; BG TOTAL HEMOGLOBIN 12.2 g/dL (12.0-18.0); BG VENT MODE NASAL CANNULA
[2021-07-02] MEDS ORDERED: CEFEPIME 500 MG in DEXTROSE 5% WATER 50 ML IV SCH (16:00)
[2021-07-02] MEDS ORDERED: KETAMINE HCL 50 MG/ML 10ML IV ONE (16:15)
[2021-07-02] MEDS ORDERED: DOCUSATE SODIUM 100MG CAPSULE PO PRN (17:15)
[2021-07-02] MEDS ORDERED: GUAIFENESIN 200MG/10ML SUGAR FREE UDC PO PRN (17:15)
[2021-07-02] MEDS ORDERED: IPRATROPIUM/ALBUTEROL 0.5-3(2.5)MG/3ML NEB HHN PRN (17:15)
[2021-07-03] VITALS (71 sets, daily range): BP systolic 52–162; BP diastolic 24–106
[2021-07-03 05:23] LABS: HEMATOCRIT. 42.6 % (42.0-52.0); HEMOGLOBIN. 13.2 g/dL (14.0-18.0); MEAN CORPUSCULAR HEMOGLOBIN 29.3 pg (28.0-32.0); MEAN CORPUSCULAR VOLUME 94.9 fL (80.0-94.0); MEAN PLATELET VOLUME 10.3 fl (7.4-10.4); PLATELET 187 x1000/uL (130-400); RED BLOOD CELL COUNT 4.49 mill/uL (4.7-6.1); RED CELL DISTRIBUTION WIDTH 16.1 % (11.6-14.6)
[2021-07-03 05:51] LABS: PHOSPHORUS 8.7 mg/dL (2.5-4.9)
[2021-07-03] MEDS: NOREPINEPHRINE 8 MG in DEXTROSE 5% WATER 250 ML IV PRN ×2 (07:24→15:30)
[2021-07-03] MEDS: MEMANTINE HCL 5MG TABLET PO SCH (12:07)
[2021-07-03] MEDS: CLOPIDOGREL 75MG TABLET PO SCH (12:07)
[2021-07-03 12:53] LABS: PLATELET ESTIMATE NORMAL
[2021-07-03] MEDS ORDERED: CEFEPIME 500 MG in DEXTROSE 5% WATER 50 ML IV SCH ×2 (17:00→21:00)
[2021-07-03] MEDS: METRONIDAZOLE 250MG TABLET PO SCH ×2 (18:11→21:10)
[2021-07-03] MEDS: MICAFUNGIN 100 MG in SODIUM CHLORIDE 0.9% 100 ML IV SCH (18:11)
[2021-07-03] MEDS: CEFEPIME 1,000 MG in DEXTROSE 5% WATER 50 ML IV SCH (21:10)
[2021-07-04] VITALS (99 sets, daily range): BP systolic 67–175; BP diastolic 33–156
[2021-07-04] MEDS: NOREPINEPHRINE 8 MG in DEXTROSE 5% WATER 250 ML IV PRN ×3 (02:22→23:45)
[2021-07-04] MEDS: METRONIDAZOLE 250MG TABLET PO SCH ×3 (05:24→21:08)
[2021-07-04 06:39] LABS: HEMATOCRIT. 33.1 % (42.0-52.0); HEMOGLOBIN. 10.7 g/dL (14.0-18.0); MEAN CORPUSCULAR HEMOGLOBIN 29.5 pg (28.0-32.0); MEAN CORPUSCULAR VOLUME 91.1 fL (80.0-94.0); MEAN PLATELET VOLUME 9.7 fl (7.4-10.4); PLATELET 228 x1000/uL (130-400); RED BLOOD CELL COUNT 3.64 mill/uL (4.7-6.1); RED CELL DISTRIBUTION WIDTH 15.4 % (11.6-14.6)
[2021-07-04] MEDS: MEMANTINE HCL 5MG TABLET PO SCH (08:38)
[2021-07-04] MEDS: CLOPIDOGREL 75MG TABLET PO SCH (08:38)
[2021-07-04] MEDS ORDERED: POTASSIUM CHLORIDE 20MEQ/PACKET PO NR (09:30)
[2021-07-04] MEDS ORDERED: VASOPRESSIN 20 UNIT in SODIUM CHLORIDE 0.9% 99 ML IV PRN (11:45)
[2021-07-04] MEDS: MIDODRINE HCL 5MG TABLET PO SCH ×2 (13:59→17:09)
[2021-07-04 15:19] LABS: NUCLEATED RED BLOOD CELLS 1 /100 WBC
[2021-07-04 15:20] LABS: PLATELET ESTIMATE NORMAL
[2021-07-04] MEDS: MICAFUNGIN 100 MG in SODIUM CHLORIDE 0.9% 100 ML IV SCH (17:08)
[2021-07-04] MEDS: CEFEPIME 1,000 MG in DEXTROSE 5% WATER 50 ML IV SCH (21:08)
[2021-07-04] MEDS: ACETAMINOPHEN 325MG TABLET PO PRN (21:09)
[2021-07-05] VITALS (93 sets, daily range): BP systolic 52–143; BP diastolic 19–85
[2021-07-05] MEDS: METRONIDAZOLE 250MG TABLET PO SCH (05:12)
[2021-07-05 06:10] LABS: HEMATOCRIT. 33.4 % (42.0-52.0); HEMOGLOBIN. 10.8 g/dL (14.0-18.0); MEAN CORPUSCULAR HEMOGLOBIN 29.4 pg (28.0-32.0); MEAN PLATELET VOLUME 9.6 fl (7.4-10.4); PLATELET 239 x1000/uL (130-400); RED BLOOD CELL COUNT 3.67 mill/uL (4.7-6.1); RED CELL DISTRIBUTION WIDTH 16.1 % (11.6-14.6)
[2021-07-05] MEDS: ONDANSETRON HCL 4MG/2ML INJ IV PRN (06:59)
[2021-07-05] MEDS: MEMANTINE HCL 5MG TABLET PO SCH ×2 (09:00→09:35)
[2021-07-05] MEDS: CLOPIDOGREL 75MG TABLET PO SCH ×2 (09:00→09:35)
[2021-07-05] MEDS: MIDODRINE HCL 5MG TABLET PO SCH ×4 (09:00→17:00)
[2021-07-05 09:03] LABS: PLATELET ESTIMATE NORMAL
[2021-07-05] MEDS: MICAFUNGIN 100 MG in SODIUM CHLORIDE 0.9% 100 ML IV SCH (17:10)
[2021-07-05] MEDS: PIPERACILLIN/TAZOBACTAM 3.375 G in DEXTROSE 5% WATER 50 ML IV SCH ×2 (17:10→23:13)
[2021-07-05] MEDS: NOREPINEPHRINE 8 MG in DEXTROSE 5% WATER 250 ML IV PRN (22:09)
[2021-07-06] VITALS (91 sets, daily range): BP systolic 80–145; BP diastolic 42–101
[2021-07-06] MEDS: ONDANSETRON HCL 4MG/2ML INJ IV PRN ×2 (00:11→09:28)
[2021-07-06 06:51] LABS: HEMATOCRIT. 31.8 % (42.0-52.0); HEMOGLOBIN. 10.4 g/dL (14.0-18.0); MEAN CORPUSCULAR HEMOGLOBIN 29.3 pg (28.0-32.0); MEAN CORPUSCULAR VOLUME 89.8 fL (80.0-94.0); MEAN PLATELET VOLUME 9.9 fl (7.4-10.4); PLATELET 221 x1000/uL (130-400); RED BLOOD CELL COUNT 3.54 mill/uL (4.7-6.1); RED CELL DISTRIBUTION WIDTH 16.3 % (11.6-14.6)
[2021-07-06] MEDS: MEMANTINE HCL 5MG TABLET PO SCH (09:00)
[2021-07-06] MEDS: MIDODRINE HCL 5MG TABLET PO SCH ×3 (09:00→17:00)
[2021-07-06] MEDS: CLOPIDOGREL 75MG TABLET PO SCH (09:00)
[2021-07-06] MEDS ORDERED: PANTOPRAZOLE SODIUM 40 MG/VIAL IV SCH (09:00)
[2021-07-06] MEDS: PIPERACILLIN/TAZOBACTAM 3.375 G in DEXTROSE 5% WATER 50 ML IV SCH ×2 (09:28→20:43)
[2021-07-06] MEDS ORDERED: DEXT 5%/LACTATED RINGERS 1,000 ML IV SCH (11:00)
[2021-07-06] MEDS ORDERED: DIATR MEGLU/DIATRIZOATE SOLN 30ML PO ONE (11:30)
[2021-07-06] MEDS: DEXT 5%/0.9% NACL 1,000 ML IV SCH (11:35)
[2021-07-06 13:23] LABS: NUCLEATED RED BLOOD CELLS 3 /100 WBC; PLATELET ESTIMATE NORMAL
[2021-07-06] MEDS: METOCLOPRAMIDE HCL 10MG/2ML VIAL IV SCH ×2 (18:23→23:13)
[2021-07-06] MEDS: PANTOPRAZOLE SODIUM 40 MG/VIAL IV SCH (18:23)
[2021-07-06] MEDS: MICAFUNGIN 100 MG in SODIUM CHLORIDE 0.9% 100 ML IV SCH (18:23)
[2021-07-07] VITALS (89 sets, daily range): BP systolic 97–162; BP diastolic 42–100
[2021-07-07] MEDS: DEXT 5%/0.9% NACL 1,000 ML IV SCH ×2 (05:09→22:03)
[2021-07-07] MEDS: METOCLOPRAMIDE HCL 10MG/2ML VIAL IV SCH ×3 (05:13→17:26)
[2021-07-07 06:47] LABS: HEMATOCRIT. 29.4 % (42.0-52.0); HEMOGLOBIN. 9.6 g/dL (14.0-18.0); MEAN CORPUSCULAR HEMOGLOBIN 29.6 pg (28.0-32.0); MEAN CORPUSCULAR VOLUME 90.8 fL (80.0-94.0); MEAN PLATELET VOLUME 9.4 fl (7.4-10.4); PLATELET 202 x1000/uL (130-400); RED BLOOD CELL COUNT 3.24 mill/uL (4.7-6.1); RED CELL DISTRIBUTION WIDTH 15.8 % (11.6-14.6)
[2021-07-07 06:54] LABS: INR 1.7; PROTHROMBIN TIME 17.3 sec (9.6-11.0)
[2021-07-07 07:30] LABS: HEPATITIS B SURFACE ANTIGEN NEGATIVE
[2021-07-07 08:40] LABS: PLATELET ESTIMATE NORMAL
[2021-07-07] MEDS: CLOPIDOGREL 75MG TABLET PO SCH (09:00)
[2021-07-07] MEDS: MEMANTINE HCL 5MG TABLET PO SCH (09:00)
[2021-07-07] MEDS: MIDODRINE HCL 5MG TABLET PO SCH ×3 (09:00→17:00)
[2021-07-07] MEDS: PIPERACILLIN/TAZOBACTAM 3.375 G in DEXTROSE 5% WATER 50 ML IV SCH ×2 (09:07→20:40)
[2021-07-07] MEDS: PANTOPRAZOLE SODIUM 40 MG/VIAL IV SCH ×2 (09:07→17:26)
[2021-07-07] MEDS: LORAZEPAM 2MG/ML CPJ IV PRN (09:11)
[2021-07-07] MEDS: KCL 20MEQ/100ML PREMIX 100 ML IV SCH ×2 (09:12→10:54)
[2021-07-07] MEDS ORDERED: NALOXONE HCL 0.4MG/ML VIAL IV PRN (10:45)
[2021-07-07] MEDS: MORPHINE SULFATE 2 MG/ML CPJ (NOT FOR IM USE) IV PRN ×2 (10:54→17:27)
[2021-07-07 11:19] LABS: CARCINO EMBRYONIC ANTIGEN < 0.5 ng/ml
[2021-07-07] MEDS: MICAFUNGIN 100 MG in SODIUM CHLORIDE 0.9% 100 ML IV SCH (17:27)
[2021-07-08] VITALS (40 sets, daily range): BP systolic 126–170; BP diastolic 55–99
[2021-07-08] MEDS: METOCLOPRAMIDE HCL 10MG/2ML VIAL IV SCH ×3 (00:16→11:40)
[2021-07-08 05:45] LABS: HEMATOCRIT. 32.7 % (42.0-52.0); HEMOGLOBIN. 10.4 g/dL (14.0-18.0); MEAN CORPUSCULAR HEMOGLOBIN 29.2 pg (28.0-32.0); MEAN CORPUSCULAR VOLUME 91.8 fL (80.0-94.0); MEAN PLATELET VOLUME 9.7 fl (7.4-10.4); PLATELET 206 x1000/uL (130-400); RED BLOOD CELL COUNT 3.56 mill/uL (4.7-6.1); RED CELL DISTRIBUTION WIDTH 16.4 % (11.6-14.6)
[2021-07-08] MEDS ORDERED: POTASSIUM CHLORIDE 20MEQ TABLET SR PO SCH (07:30)
[2021-07-08] MEDS: PIPERACILLIN/TAZOBACTAM 3.375 G in DEXTROSE 5% WATER 50 ML IV SCH ×2 (08:27→21:06)
[2021-07-08] MEDS: MEMANTINE HCL 5MG TABLET PO SCH (08:27)
[2021-07-08] MEDS: CLOPIDOGREL 75MG TABLET PO SCH (08:27)
[2021-07-08] MEDS: PANTOPRAZOLE SODIUM 40 MG/VIAL IV SCH ×2 (08:27→20:16)
[2021-07-08] MEDS: MIDODRINE HCL 5MG TABLET PO SCH ×3 (08:27→20:16)
[2021-07-08 10:01] LABS: PLATELET ESTIMATE NORMAL
[2021-07-08] MEDS: DEXT 5%/0.9% NACL 1,000 ML IV SCH (11:40)
[2021-07-08] MEDS: MICAFUNGIN 100 MG in SODIUM CHLORIDE 0.9% 100 ML IV SCH (15:31)
[2021-07-09] VITALS (13 sets, daily range): BP systolic 127–147; BP diastolic 65–82
[2021-07-09] MEDS: DEXT 5%/0.9% NACL 1,000 ML IV SCH ×2 (04:32→23:13)
[2021-07-09 06:03] LABS: HEMATOCRIT. 26.9 % (42.0-52.0); HEMOGLOBIN. 8.6 g/dL (14.0-18.0); MEAN CORPUSCULAR HEMOGLOBIN 28.8 pg (28.0-32.0); MEAN CORPUSCULAR VOLUME 90.6 fL (80.0-94.0); MEAN PLATELET VOLUME 9.6 fl (7.4-10.4); PLATELET 181 x1000/uL (130-400); RED BLOOD CELL COUNT 2.97 mill/uL (4.7-6.1); RED CELL DISTRIBUTION WIDTH 16.7 % (11.6-14.6)
[2021-07-09] MEDS ORDERED: POTASSIUM CHLORIDE INJ 40 MEQ in DEXT 5% WATER 250 ML IV ONE (08:30)
[2021-07-09] MEDS: MEMANTINE HCL 5MG TABLET PO SCH (08:50)
[2021-07-09] MEDS: CLOPIDOGREL 75MG TABLET PO SCH (08:50)
[2021-07-09] MEDS: PIPERACILLIN/TAZOBACTAM 3.375 G in DEXTROSE 5% WATER 50 ML IV SCH ×2 (08:50→21:07)
[2021-07-09] MEDS: MIDODRINE HCL 5MG TABLET PO SCH ×3 (08:50→17:00)
[2021-07-09] MEDS: PANTOPRAZOLE SODIUM 40 MG/VIAL IV SCH ×3 (08:50→17:39)
[2021-07-09] MEDS ORDERED: ALTEPLASE 2MG/VIAL ITC NR (09:30)
[2021-07-09] MEDS ORDERED: MAGNESIUM 2 G PREMIX 50 ML IV NR (09:30)
[2021-07-09] MEDS: KCL 20MEQ/100ML X 2 FOR TOTAL KCL 40MEQ/200ML IV SCH ×2 (09:43→13:17)
[2021-07-09] MEDS ORDERED: VISCOUS LIDOCAINE 2% 15 ML UDC MM PRN (10:30)
[2021-07-09 13:42] LABS: PLATELET ESTIMATE NORMAL
[2021-07-09] MEDS ORDERED: KCL 20MEQ/100ML PREMIX 100 ML IV NR (14:30)
[2021-07-10] VITALS (12 sets, daily range): BP systolic 113–144; BP diastolic 68–85
[2021-07-10 06:41] LABS: HEMATOCRIT. 25.4 % (42.0-52.0); MEAN CORPUSCULAR HEMOGLOBIN 28.7 pg (28.0-32.0); MEAN CORPUSCULAR VOLUME 91.1 fL (80.0-94.0); PLATELET 170 x1000/uL (130-400); RED BLOOD CELL COUNT 2.79 mill/uL (4.7-6.1); RED CELL DISTRIBUTION WIDTH 16.8 % (11.6-14.6)
[2021-07-10 07:26] LABS: PHOSPHORUS 4.5 mg/dL (2.5-4.9)
[2021-07-10] MEDS: MIDODRINE HCL 5MG TABLET PO SCH (09:00)
[2021-07-10] MEDS: MEMANTINE HCL 5MG TABLET PO SCH (09:32)
[2021-07-10] MEDS: CLOPIDOGREL 75MG TABLET PO SCH (09:32)
[2021-07-10] MEDS: PANTOPRAZOLE SODIUM 40 MG/VIAL IV SCH ×2 (09:32→18:39)
[2021-07-10] MEDS: PIPERACILLIN/TAZOBACTAM 3.375 G in DEXTROSE 5% WATER 50 ML IV SCH ×2 (09:43→21:48)
[2021-07-10 10:12] LABS: INR 2.3; PROTHROMBIN TIME 23.5 sec (9.6-11.0)
[2021-07-10] MEDS ORDERED: PHYTONADIONE 10MG/ML AMP SUBCUT SCH (11:00)
[2021-07-10] MEDS ORDERED: LIDOCAINE HCL 1% 20ML VIAL (Pyxis) INJ ONE (11:02)
[2021-07-10] MEDS ORDERED: HEPARIN 1000 UNITS/ML 10ML ONE (11:02)
[2021-07-10 12:21] LABS: NUCLEATED RED BLOOD CELLS 3 /100 WBC; PLATELET ESTIMATE NORMAL
[2021-07-10] MEDS: SODIUM BICARBONATE 100 MEQ in DEXTROSE 5% WATER 1,000 ML IV SCH (12:31)
[2021-07-10] MEDS ORDERED: FLUCONAZOLE 100MG TABLET PO SCH (14:15)
[2021-07-10] MEDS ORDERED: HEPARIN SODIUM 1,000 UNIT/1ML VIAL IV NR (15:00)
[2021-07-10 15:08] LABS: HEPATITIS B SURFACE ANTIGEN NEGATIVE
[2021-07-10] MEDS ORDERED: FLUCONAZOLE 400MG/200ML BAG 200 ML IV NR (15:30)
[2021-07-10] MEDS: DEXT 5%/0.9% NACL 1,000 ML IV SCH (15:30)
[2021-07-10] MEDS: METOCLOPRAMIDE HCL 5MG TABLET PO SCH (18:39)
[2021-07-10] MEDS: MORPHINE SULFATE 2 MG/ML CPJ (NOT FOR IM USE) IV PRN (18:40)
[2021-07-11] VITALS (15 sets, daily range): BP systolic 121–156; BP diastolic 68–98
[2021-07-11] MEDS: METOCLOPRAMIDE HCL 5MG TABLET PO SCH ×3 (00:06→12:52)
[2021-07-11] MEDS: SODIUM BICARBONATE 100 MEQ in DEXTROSE 5% WATER 1,000 ML IV SCH (05:17)
[2021-07-11 06:45] LABS: BASOPHILS % 0.3 % (0.0-2.0); HEMATOCRIT. 24.4 % (42.0-52.0); HEMOGLOBIN. 7.8 g/dL (14.0-18.0); MEAN PLATELET VOLUME 10.3 fl (7.4-10.4); MONOCYTES % 8.5 % (2.0-8.0); NEUTROPHILS % 81.2 % (40.0-76.0); PLATELET 145 x1000/uL (130-400); RED BLOOD CELL COUNT 2.69 mill/uL (4.7-6.1); RED CELL DISTRIBUTION WIDTH 17.4 % (11.6-14.6)
[2021-07-11] MEDS: MEMANTINE HCL 5MG TABLET PO SCH (09:06)
[2021-07-11] MEDS: PANTOPRAZOLE SODIUM 40 MG/VIAL IV SCH ×2 (09:06→18:41)
[2021-07-11] MEDS: DEXT 5%/0.45% NACL 1000ML 1,000 ML IV SCH (09:06)
[2021-07-11] MEDS: LORAZEPAM 2MG/ML CPJ IV PRN (11:46)
[2021-07-11] MEDS: FLUCONAZOLE 200 MG/100ML BAG 100 ML IV SCH (12:53)
[2021-07-11] MEDS ORDERED: FLUCONAZOLE 200 MG/100ML BAG 100 ML IV SCH (15:30)
[2021-07-11 15:56] LABS: INR 1.7; PROTHROMBIN TIME 17.2 sec (9.6-11.0)
[2021-07-11] MEDS ORDERED: PHYTONADIONE 10MG/ML AMP SUBCUT NR (18:30)
[2021-07-11] MEDS: METOCLOPRAMIDE HCL 10MG/2ML VIAL IV SCH (18:41)
[2021-07-11] MEDS: SOTALOL HCL 80MG TABLET PO SCH (21:15)
[2021-07-12] VITALS (16 sets, daily range): BP systolic 107–160; BP diastolic 51–103
[2021-07-12] MEDS: METOCLOPRAMIDE HCL 10MG/2ML VIAL IV SCH ×5 (00:16→23:25)
[2021-07-12 06:43] LABS: PHOSPHORUS 6.8 mg/dL (2.5-4.9)
[2021-07-12 06:48] LABS: BASOPHILS % 0.2 % (0.0-2.0); EOSINOPHILS % 0.2 % (0.0-5.0); HEMATOCRIT. 24.3 % (42.0-52.0); HEMOGLOBIN. 7.6 g/dL (14.0-18.0); LYMPHOCYTES % 8.4 % (20.0-50.0); MEAN CORPUSCULAR HEMOGLOBIN 29.2 pg (28.0-32.0); MEAN CORPUSCULAR VOLUME 93.4 fL (80.0-94.0); MEAN PLATELET VOLUME 10.9 fl (7.4-10.4); MONOCYTES % 6.5 % (2.0-8.0); NEUTROPHILS % 84.7 % (40.0-76.0); PLATELET 144 x1000/uL (130-400); RED CELL DISTRIBUTION WIDTH 17.7 % (11.6-14.6)
[2021-07-12 06:52] LABS: INR 1.9; PARTIAL THROMBOPLASTIN TIME 38.5 sec (23.4-31.0); PROTHROMBIN TIME 19.2 sec (9.6-11.0)
[2021-07-12] MEDS ORDERED: DEXTROSE 50% WATER 50ML SYRINGE IV SCH (07:00)
[2021-07-12] MEDS: SOTALOL HCL 80MG TABLET PO SCH ×2 (08:45→20:58)
[2021-07-12] MEDS: PANTOPRAZOLE SODIUM 40 MG/VIAL IV SCH ×2 (08:46→17:00)
[2021-07-12] MEDS: DEXT 5%/0.45% NACL 1000ML 1,000 ML IV SCH (08:46)
[2021-07-12] MEDS: MEMANTINE HCL 5MG TABLET PO SCH (08:46)
[2021-07-12] MEDS: FLUCONAZOLE 200 MG/100ML BAG 100 ML IV SCH (14:00)
[2021-07-12] MEDS ORDERED: PHYTONADIONE 10MG/ML AMP SUBCUT NR (18:30)
[2021-07-12] MEDS ORDERED: AZITHROMYCIN 500 MG TABLET PO NR (19:30)
[2021-07-12] MEDS: ACETAMINOPHEN 325MG TABLET PO PRN (21:45)
[2021-07-12] MEDS ORDERED: TRAMADOL 50MG TABLET PO PRN (22:45)
[2021-07-12] MEDS ORDERED: MAGNESIUM/ALUMINUM HYDROXIDE/SIMETHICONE 30ML UDC PO PRN (22:45)
[2021-07-12] MEDS: DEXTROSE 50% WATER 50ML SYRINGE IV PRN (23:01)
[2021-07-13] VITALS (13 sets, daily range): BP systolic 105–145; BP diastolic 62–95
[2021-07-13] MEDS: BLOOD SUGAR DIAGNOSTIC STRIP TEST SCH ×4 (06:06→21:38)
[2021-07-13] MEDS: METOCLOPRAMIDE HCL 10MG/2ML VIAL IV SCH ×3 (06:06→17:48)
[2021-07-13 06:31] LABS: BASOPHILS % 0.3 % (0.0-2.0); EOSINOPHILS % 0.4 % (0.0-5.0); HEMATOCRIT. 24.5 % (42.0-52.0); HEMOGLOBIN. 7.5 g/dL (14.0-18.0); MEAN PLATELET VOLUME 11.2 fl (7.4-10.4); MONOCYTES % 4.2 % (2.0-8.0); NEUTROPHILS % 85.1 % (40.0-76.0); PLATELET 151 x1000/uL (130-400); RED BLOOD CELL COUNT 2.61 mill/uL (4.7-6.1); RED CELL DISTRIBUTION WIDTH 18.5 % (11.6-14.6)
[2021-07-13 06:39] LABS: INR 2.1; PROTHROMBIN TIME 20.9 sec (9.6-11.0)
[2021-07-13] MEDS ORDERED: PHYTONADIONE 10MG/ML AMP SUBCUT NR (08:00)
[2021-07-13] MEDS: MEMANTINE HCL 5MG TABLET PO SCH (08:27)
[2021-07-13] MEDS: PANTOPRAZOLE SODIUM 40 MG/VIAL IV SCH ×2 (08:27→17:48)
[2021-07-13] MEDS: DEXT 5%/0.45% NACL 1000ML 1,000 ML IV SCH (08:28)
[2021-07-13] MEDS: SOTALOL HCL 80MG TABLET PO SCH ×2 (08:59→21:00)
[2021-07-13] MEDS: FLUCONAZOLE 200 MG/100ML BAG 100 ML IV SCH (14:57)
[2021-07-13] MEDS ORDERED: EPOETIN ALFA-EPBX 4,000 UNIT/ML VIAL SUBCUT SCH (21:00)
[2021-07-14] VITALS (16 sets, daily range): BP systolic 120–157; BP diastolic 68–81
[2021-07-14] MEDS: METOCLOPRAMIDE HCL 10MG/2ML VIAL IV SCH ×5 (00:34→23:15)
[2021-07-14] MEDS: BLOOD SUGAR DIAGNOSTIC STRIP TEST SCH ×4 (05:53→21:03)
[2021-07-14 06:24] LABS: BASOPHILS % 0.3 % (0.0-2.0); EOSINOPHILS % 0.5 % (0.0-5.0); HEMATOCRIT. 29.6 % (42.0-52.0); LYMPHOCYTES % 8.5 % (20.0-50.0); MEAN CORPUSCULAR HEMOGLOBIN 29.3 pg (28.0-32.0); MEAN CORPUSCULAR VOLUME 91.9 fL (80.0-94.0); MEAN PLATELET VOLUME 10.8 fl (7.4-10.4); MONOCYTES % 3.6 % (2.0-8.0); NEUTROPHILS % 87.1 % (40.0-76.0); PLATELET 147 x1000/uL (130-400); RED BLOOD CELL COUNT 3.22 mill/uL (4.7-6.1); RED CELL DISTRIBUTION WIDTH 17.1 % (11.6-14.6)
[2021-07-14] MEDS: DEXTROSE 50% WATER 50ML SYRINGE IV PRN (06:25)
[2021-07-14 06:53] LABS: HEMOGLOBIN. 9.5 g/dL (14.0-18.0)
[2021-07-14] MEDS: SOTALOL HCL 80MG TABLET PO SCH ×2 (08:42→21:00)
[2021-07-14] MEDS: PANTOPRAZOLE SODIUM 40 MG/VIAL IV SCH ×2 (08:46→17:22)
[2021-07-14] MEDS: DEXT 5%/0.45% NACL 1000ML 1,000 ML IV SCH (08:46)
[2021-07-14] MEDS: MEMANTINE HCL 5MG TABLET PO SCH (09:00)
[2021-07-14 11:17] LABS: INR 1.7; PARTIAL THROMBOPLASTIN TIME 37.9 sec (23.4-31.0); PROTHROMBIN TIME 17.9 sec (9.6-11.0)
[2021-07-14] MEDS ORDERED: GLYCOPYRROLATE 0.2 MG/ML 2ML VIAL ONE (13:17)
[2021-07-14] MEDS ORDERED: BUPIVACAINE HCL/PF 0.5% (5MG/ML) 10ML ONE (13:30)
[2021-07-14] MEDS ORDERED: LIDOCAINE HCL 1% 20ML VIAL (Pyxis) INJ ONE (13:30)
[2021-07-14] MEDS: LACTULOSE 20G/30ML UDC PO SCH ×2 (14:00→22:48)
[2021-07-14] MEDS: FLUCONAZOLE 200 MG/100ML BAG 100 ML IV SCH (15:53)
[2021-07-15] VITALS (11 sets, daily range): BP systolic 125–140; BP diastolic 22–81
[2021-07-15] MEDS: METOCLOPRAMIDE HCL 10MG/2ML VIAL IV SCH ×3 (05:58→17:53)
[2021-07-15] MEDS: BLOOD SUGAR DIAGNOSTIC STRIP TEST SCH ×4 (05:58→21:00)
[2021-07-15] MEDS: LACTULOSE 20G/30ML UDC PO SCH ×3 (05:58→22:00)
[2021-07-15 07:01] LABS: BASOPHILS % 0.3 % (0.0-2.0); EOSINOPHILS % 0.3 % (0.0-5.0); HEMATOCRIT. 28.4 % (42.0-52.0); LYMPHOCYTES % 8.7 % (20.0-50.0); MEAN CORPUSCULAR HEMOGLOBIN 29.4 pg (28.0-32.0); MEAN CORPUSCULAR VOLUME 92.3 fL (80.0-94.0); MEAN PLATELET VOLUME 11.2 fl (7.4-10.4); MONOCYTES % 4.6 % (2.0-8.0); NEUTROPHILS % 86.1 % (40.0-76.0); PLATELET 134 x1000/uL (130-400); RED BLOOD CELL COUNT 3.07 mill/uL (4.7-6.1)
[2021-07-15] MEDS: SOTALOL HCL 80MG TABLET PO SCH ×2 (08:09→21:00)
[2021-07-15] MEDS: PANTOPRAZOLE SODIUM 40 MG/VIAL IV SCH ×2 (08:16→17:53)
[2021-07-15] MEDS: MEMANTINE HCL 5MG TABLET PO SCH (08:17)
[2021-07-15] MEDS: MEGESTROL ACETATE 400 MG/10 ML UDC PO SCH (08:17)
[2021-07-15] MEDS: DEXT 5%/0.45% NACL 1000ML 1,000 ML IV SCH (08:17)
[2021-07-15] MEDS ORDERED: HEPARIN SODIUM 1,000 UNIT/1ML VIAL IV NR (12:15)
[2021-07-15] MEDS ORDERED: ONDANSETRON HCL 4MG/2ML INJ IV PRN (14:45)
[2021-07-15] MEDS: FLUCONAZOLE 200 MG/100ML BAG 100 ML IV SCH (15:13)
[2021-07-16] VITALS (11 sets, daily range): BP systolic 122–145; BP diastolic 64–83
[2021-07-16] MEDS: METOCLOPRAMIDE HCL 10MG/2ML VIAL IV SCH ×4 (01:17→18:06)
[2021-07-16] MEDS: LACTULOSE 20G/30ML UDC PO SCH ×3 (06:00→21:29)
[2021-07-16] MEDS: BLOOD SUGAR DIAGNOSTIC STRIP TEST SCH ×4 (06:52→21:55)
[2021-07-16 07:13] LABS: HEMATOCRIT. 29.2 % (42.0-52.0); HEMOGLOBIN. 9.5 g/dL (14.0-18.0); MEAN CORPUSCULAR HEMOGLOBIN 30.1 pg (28.0-32.0); MEAN CORPUSCULAR VOLUME 92.4 fL (80.0-94.0); MEAN PLATELET VOLUME 10.9 fl (7.4-10.4); PLATELET 126 x1000/uL (130-400); RED BLOOD CELL COUNT 3.16 mill/uL (4.7-6.1); RED CELL DISTRIBUTION WIDTH 17.7 % (11.6-14.6)
[2021-07-16] MEDS: MEMANTINE HCL 5MG TABLET PO SCH (08:10)
[2021-07-16] MEDS: PANTOPRAZOLE SODIUM 40 MG/VIAL IV SCH ×2 (08:10→18:06)
[2021-07-16] MEDS: MEGESTROL ACETATE 400 MG/10 ML UDC PO SCH (08:10)
[2021-07-16] MEDS: DEXT 5%/0.45% NACL 1000ML 1,000 ML IV SCH (08:12)
[2021-07-16] MEDS: SOTALOL HCL 80MG TABLET PO SCH ×2 (08:12→21:00)
[2021-07-16] MEDS: FLUCONAZOLE 200 MG/100ML BAG 100 ML IV SCH (13:16)
[2021-07-16 13:27] LABS: NUCLEATED RED BLOOD CELLS 3 /100 WBC
[2021-07-16 13:28] LABS: PLATELET ESTIMATE SLIGHTLY DECREASED
[2021-07-16] MEDS: EPOETIN ALFA-EPBX 10,000 UNIT/ML VIAL SUBCUT SCH (21:29)
[2021-07-17] VITALS (12 sets, daily range): BP systolic 122–149; BP diastolic 66–82
[2021-07-17] MEDS: METOCLOPRAMIDE HCL 10MG/2ML VIAL IV SCH ×4 (01:14→18:15)
[2021-07-17] MEDS: LACTULOSE 20G/30ML UDC PO SCH ×3 (05:58→21:14)
[2021-07-17] MEDS: BLOOD SUGAR DIAGNOSTIC STRIP TEST SCH ×4 (06:13→21:14)
[2021-07-17 06:32] LABS: HEMATOCRIT. 29.5 % (42.0-52.0); HEMOGLOBIN. 9.4 g/dL (14.0-18.0); MEAN CORPUSCULAR HEMOGLOBIN 29.8 pg (28.0-32.0); MEAN CORPUSCULAR VOLUME 94.1 fL (80.0-94.0); MEAN PLATELET VOLUME 11.3 fl (7.4-10.4); PLATELET 115 x1000/uL (130-400); RED BLOOD CELL COUNT 3.14 mill/uL (4.7-6.1); RED CELL DISTRIBUTION WIDTH 17.3 % (11.6-14.6)
[2021-07-17] MEDS: PANTOPRAZOLE SODIUM 40 MG/VIAL IV SCH ×2 (09:00→18:15)
[2021-07-17] MEDS: SOTALOL HCL 80MG TABLET PO SCH ×2 (09:07→21:00)
[2021-07-17] MEDS: MEMANTINE HCL 5MG TABLET PO SCH (09:07)
[2021-07-17] MEDS: MEGESTROL ACETATE 400 MG/10 ML UDC PO SCH (09:40)
[2021-07-17] MEDS: DEXT 5%/0.45% NACL 1000ML 1,000 ML IV SCH (09:57)
[2021-07-17] MEDS: ARIPIPRAZOLE 5MG TABLET PO SCH ×2 (13:46→17:00)
[2021-07-17] MEDS: FLUCONAZOLE 200 MG/100ML BAG 100 ML IV SCH (17:39)
[2021-07-17 19:56] LABS: NUCLEATED RED BLOOD CELLS 20 /100 WBC; PLATELET ESTIMATE DECREASED
[2021-07-18] VITALS (12 sets, daily range): BP systolic 115–139; BP diastolic 63–77
[2021-07-18] MEDS: METOCLOPRAMIDE HCL 10MG/2ML VIAL IV SCH ×4 (00:39→17:58)
[2021-07-18] MEDS: LACTULOSE 20G/30ML UDC PO SCH ×3 (06:43→22:20)
[2021-07-18] MEDS: BLOOD SUGAR DIAGNOSTIC STRIP TEST SCH ×4 (06:50→21:00)
[2021-07-18 06:52] LABS: BASOPHILS % 0.7 % (0.0-2.0); EOSINOPHILS % 1.9 % (0.0-5.0); HEMATOCRIT. 29.1 % (42.0-52.0); HEMOGLOBIN. 9.4 g/dL (14.0-18.0); LYMPHOCYTES % 11.5 % (20.0-50.0); MEAN CORPUSCULAR HEMOGLOBIN 30.5 pg (28.0-32.0); MEAN CORPUSCULAR VOLUME 94.2 fL (80.0-94.0); MEAN PLATELET VOLUME 11.3 fl (7.4-10.4); MONOCYTES % 5.7 % (2.0-8.0); NEUTROPHILS % 80.2 % (40.0-76.0); PLATELET 79 x1000/uL (130-400); RED BLOOD CELL COUNT 3.09 mill/uL (4.7-6.1); RED CELL DISTRIBUTION WIDTH 17.9 % (11.6-14.6)
[2021-07-18] MEDS: SOTALOL HCL 80MG TABLET PO SCH ×2 (09:00→21:00)
[2021-07-18] MEDS ORDERED: KCL 20MEQ/100ML PREMIX 100 ML IV SCH (09:00)
[2021-07-18] MEDS: PANTOPRAZOLE SODIUM 40 MG/VIAL IV SCH ×2 (09:14→17:58)
[2021-07-18] MEDS: MEGESTROL ACETATE 400 MG/10 ML UDC PO SCH (09:15)
[2021-07-18] MEDS: MEMANTINE HCL 5MG TABLET PO SCH (09:15)
[2021-07-18] MEDS: DEXT 5%/0.45% NACL 1000ML 1,000 ML IV SCH (09:37)
[2021-07-18] MEDS: ARIPIPRAZOLE 5MG TABLET PO SCH ×2 (09:53→17:58)
[2021-07-18] MEDS: FLUCONAZOLE 200 MG/100ML BAG 100 ML IV SCH (13:49)
[2021-07-18] MEDS: EPOETIN ALFA-EPBX 10,000 UNIT/ML VIAL SUBCUT SCH (22:20)
[2021-07-18] MEDS: AZITHROMYCIN 500 MG in DEXT 5% WATER 250 ML IV SCH (22:20)
[2021-07-19] VITALS (13 sets, daily range): BP systolic 109–154; BP diastolic 66–94
[2021-07-19] MEDS: METOCLOPRAMIDE HCL 10MG/2ML VIAL IV SCH ×5 (00:57→23:44)
[2021-07-19 01:18] LABS: INR 1.7; PARTIAL THROMBOPLASTIN TIME 48.1 sec (23.4-31.0); PROTHROMBIN TIME 17.4 sec (9.6-11.0)
[2021-07-19] MEDS: BLOOD SUGAR DIAGNOSTIC STRIP TEST SCH ×4 (06:06→23:32)
[2021-07-19] MEDS: LACTULOSE 20G/30ML UDC PO SCH ×3 (06:06→21:48)
[2021-07-19 07:46] LABS: BASOPHILS % 0.9 % (0.0-2.0); EOSINOPHILS % 1.3 % (0.0-5.0); HEMATOCRIT. 31.5 % (42.0-52.0); HEMOGLOBIN. 9.9 g/dL (14.0-18.0); LYMPHOCYTES % 11.5 % (20.0-50.0); MEAN CORPUSCULAR HEMOGLOBIN 29.6 pg (28.0-32.0); MEAN CORPUSCULAR VOLUME 94.2 fL (80.0-94.0); MEAN PLATELET VOLUME 10.2 fl (7.4-10.4); MONOCYTES % 6.7 % (2.0-8.0); NEUTROPHILS % 79.6 % (40.0-76.0); PLATELET 51 x1000/uL (130-400); RED BLOOD CELL COUNT 3.35 mill/uL (4.7-6.1); RED CELL DISTRIBUTION WIDTH 18.4 % (11.6-14.6)
[2021-07-19 08:15] LABS: PHOSPHORUS 4.6 mg/dL (2.5-4.9)
[2021-07-19] MEDS: PANTOPRAZOLE SODIUM 40 MG/VIAL IV SCH ×2 (08:30→17:45)
[2021-07-19] MEDS: MEMANTINE HCL 5MG TABLET PO SCH (08:30)
[2021-07-19] MEDS: MEGESTROL ACETATE 400 MG/10 ML UDC PO SCH (08:30)
[2021-07-19] MEDS: ARIPIPRAZOLE 5MG TABLET PO SCH ×2 (08:30→17:44)
[2021-07-19] MEDS: SOTALOL HCL 80MG TABLET PO SCH ×2 (08:30→21:00)
[2021-07-19] MEDS: DEXT 5%/0.45% NACL 1000ML 1,000 ML IV SCH (08:30)
[2021-07-19] MEDS: FLUCONAZOLE 200 MG/100ML BAG 100 ML IV SCH (14:48)
[2021-07-19] MEDS: AZITHROMYCIN 500 MG in DEXT 5% WATER 250 ML IV SCH (21:49)
[2021-07-20] VITALS (12 sets, daily range): BP systolic 104–143; BP diastolic 53–85
[2021-07-20] MEDS: LACTULOSE 20G/30ML UDC PO SCH ×3 (05:58→22:20)
[2021-07-20] MEDS: BLOOD SUGAR DIAGNOSTIC STRIP TEST SCH ×3 (06:12→17:04)
[2021-07-20] MEDS: METOCLOPRAMIDE HCL 10MG/2ML VIAL IV SCH ×4 (06:17→23:14)
[2021-07-20 08:29] LABS: BASOPHILS % 0.9 % (0.0-2.0); EOSINOPHILS % 1.3 % (0.0-5.0); HEMOGLOBIN. 11.5 g/dL (14.0-18.0); LYMPHOCYTES % 13.2 % (20.0-50.0); MEAN CORPUSCULAR HEMOGLOBIN 30.2 pg (28.0-32.0); MEAN CORPUSCULAR VOLUME 94.7 fL (80.0-94.0); MEAN PLATELET VOLUME 10.8 fl (7.4-10.4); NEUTROPHILS % 77.6 % (40.0-76.0); RED CELL DISTRIBUTION WIDTH 19.2 % (11.6-14.6)
[2021-07-20] MEDS: ARIPIPRAZOLE 5MG TABLET PO SCH ×2 (08:31→17:26)
[2021-07-20] MEDS: PANTOPRAZOLE SODIUM 40 MG/VIAL IV SCH ×2 (08:31→17:26)
[2021-07-20] MEDS: MEGESTROL ACETATE 400 MG/10 ML UDC PO SCH (08:31)
[2021-07-20] MEDS: MEMANTINE HCL 5MG TABLET PO SCH (08:31)
[2021-07-20] MEDS: DEXTROSE 5% WATER 1,000 ML IV SCH (08:31)
[2021-07-20 08:42] LABS: INR 1.6; PROTHROMBIN TIME 16.7 sec (9.6-11.0)
[2021-07-20 08:57] LABS: PLATELET 35 x1000/uL (130-400)
[2021-07-20] MEDS: SOTALOL HCL 80MG TABLET PO SCH ×2 (08:59→21:00)
[2021-07-20] MEDS: PHYTONADIONE 10MG/ML AMP SUBCUT SCH (09:18)
[2021-07-20 13:44] LABS: PLATELET ESTIMATE MARKEDLY DECREASED
[2021-07-20] MEDS: FLUCONAZOLE 200 MG/100ML BAG 100 ML IV SCH (15:06)
[2021-07-20] MEDS: AZITHROMYCIN 500 MG in DEXT 5% WATER 250 ML IV SCH (21:33)
[2021-07-21] VITALS (19 sets, daily range): BP systolic 116–161; BP diastolic 54–91
[2021-07-21] MEDS: BLOOD SUGAR DIAGNOSTIC STRIP TEST SCH ×4 (00:31→17:00)
[2021-07-21] MEDS: METOCLOPRAMIDE HCL 10MG/2ML VIAL IV SCH ×3 (05:25→18:36)
[2021-07-21] MEDS: LACTULOSE 20G/30ML UDC PO SCH ×3 (05:25→21:39)
[2021-07-21 06:57] LABS: HEMATOCRIT. 30.4 % (42.0-52.0); HEMOGLOBIN. 9.7 g/dL (14.0-18.0); MEAN CORPUSCULAR HEMOGLOBIN 30.1 pg (28.0-32.0); MEAN CORPUSCULAR VOLUME 94.5 fL (80.0-94.0); MEAN PLATELET VOLUME 11.2 fl (7.4-10.4); RED BLOOD CELL COUNT 3.22 mill/uL (4.7-6.1); RED CELL DISTRIBUTION WIDTH 19.7 % (11.6-14.6)
[2021-07-21 06:58] LABS: INR 1.5; PROTHROMBIN TIME 15.3 sec (9.6-11.0)
[2021-07-21] MEDS: MEGESTROL ACETATE 400 MG/10 ML UDC PO SCH (08:52)
[2021-07-21] MEDS: PANTOPRAZOLE SODIUM 40 MG/VIAL IV SCH ×2 (08:52→17:03)
[2021-07-21] MEDS: ARIPIPRAZOLE 5MG TABLET PO SCH ×2 (08:53→17:03)
[2021-07-21] MEDS: MEMANTINE HCL 5MG TABLET PO SCH (08:53)
[2021-07-21] MEDS: PHYTONADIONE 10MG/ML AMP SUBCUT SCH (08:53)
[2021-07-21] MEDS: SOTALOL HCL 80MG TABLET PO SCH ×2 (09:00→21:40)
[2021-07-21] MEDS: DEXTROSE 5% WATER 1,000 ML IV SCH (10:56)
[2021-07-21] MEDS: FLUCONAZOLE 200 MG/100ML BAG 100 ML IV SCH (13:59)
[2021-07-21 17:32] LABS: NUCLEATED RED BLOOD CELLS 15 /100 WBC; PLATELET ESTIMATE MARKEDLY DECREASED
[2021-07-21 17:33] LABS: PLATELET 27 x1000/uL (130-400)
[2021-07-21] MEDS: AZITHROMYCIN 500 MG in DEXT 5% WATER 250 ML IV SCH (21:41)
[2021-07-22] VITALS (12 sets, daily range): BP systolic 120–154; BP diastolic 71–89
[2021-07-22] MEDS: METOCLOPRAMIDE HCL 10MG/2ML VIAL IV SCH ×4 (00:55→17:50)
[2021-07-22] MEDS: BLOOD SUGAR DIAGNOSTIC STRIP TEST SCH ×4 (00:56→17:19)
[2021-07-22] MEDS: LACTULOSE 20G/30ML UDC PO SCH ×3 (06:18→21:29)
[2021-07-22 07:33] LABS: INR 1.3
[2021-07-22] MEDS: PHYTONADIONE 10MG/ML AMP SUBCUT SCH (09:36)
[2021-07-22] MEDS: ARIPIPRAZOLE 5MG TABLET PO SCH ×2 (09:36→17:51)
[2021-07-22] MEDS: MEGESTROL ACETATE 400 MG/10 ML UDC PO SCH (09:36)
[2021-07-22] MEDS: MEMANTINE HCL 5MG TABLET PO SCH (09:36)
[2021-07-22] MEDS: PANTOPRAZOLE SODIUM 40 MG/VIAL IV SCH ×2 (09:36→17:50)
[2021-07-22] MEDS: SOTALOL HCL 80MG TABLET PO SCH ×2 (09:37→21:29)
[2021-07-22 11:17] LABS: HEMATOCRIT. 30.1 % (42.0-52.0); HEMOGLOBIN. 9.7 g/dL (14.0-18.0); MEAN CORPUSCULAR HEMOGLOBIN 30.5 pg (28.0-32.0); MEAN PLATELET VOLUME 11.4 fl (7.4-10.4); RED BLOOD CELL COUNT 3.16 mill/uL (4.7-6.1); RED CELL DISTRIBUTION WIDTH 20.5 % (11.6-14.6)
[2021-07-22 11:29] LABS: PLATELET 25 x1000/uL (130-400)
[2021-07-22] MEDS: KCL 20MEQ/100ML PREMIX 100 ML IV SCH ×3 (12:37→19:22)
[2021-07-22] MEDS: DEXTROSE 5% WATER 1,000 ML IV SCH (12:37)
[2021-07-22 13:01] LABS: NUCLEATED RED BLOOD CELLS 9 /100 WBC; PLATELET ESTIMATE MARKEDLY DECREASED
[2021-07-22] MEDS: FLUCONAZOLE 200 MG/100ML BAG 100 ML IV SCH (14:57)
[2021-07-22] MEDS ORDERED: ACETYLCYSTEINE 200MG/ML 20% VIAL 4ML PO SCH (21:00)
[2021-07-22] MEDS: AZITHROMYCIN 500 MG in DEXT 5% WATER 250 ML IV SCH (21:29)
[2021-07-23] VITALS (15 sets, daily range): BP systolic 116–161; BP diastolic 53–86
[2021-07-23] MEDS: METOCLOPRAMIDE HCL 10MG/2ML VIAL IV SCH ×4 (00:53→17:20)
[2021-07-23] MEDS: LACTULOSE 20G/30ML UDC PO SCH ×3 (05:07→21:58)
[2021-07-23] MEDS: BLOOD SUGAR DIAGNOSTIC STRIP TEST SCH ×4 (05:07→17:14)
[2021-07-23 06:18] LABS: INR 1.2; PROTHROMBIN TIME 12.7 sec (9.6-11.0)
[2021-07-23] MEDS: DEXTROSE 5% WATER 1,000 ML IV SCH (07:45)
[2021-07-23 07:53] LABS: HEMATOCRIT. 29.2 % (42.0-52.0); HEMOGLOBIN. 9.1 g/dL (14.0-18.0); MEAN CORPUSCULAR HEMOGLOBIN 30.2 pg (28.0-32.0); MEAN CORPUSCULAR VOLUME 96.6 fL (80.0-94.0); MEAN PLATELET VOLUME 10.6 fl (7.4-10.4); RED BLOOD CELL COUNT 3.02 mill/uL (4.7-6.1); RED CELL DISTRIBUTION WIDTH 23.1 % (11.6-14.6)
[2021-07-23 07:57] LABS: PLATELET 24 x1000/uL (130-400)
[2021-07-23] MEDS ORDERED: POTASSIUM CHLORIDE 20MEQ/PACKET PO SCH (08:15)
[2021-07-23] MEDS: PANTOPRAZOLE SODIUM 40 MG/VIAL IV SCH ×2 (09:59→17:20)
[2021-07-23] MEDS: MEMANTINE HCL 5MG TABLET PO SCH (10:00)
[2021-07-23] MEDS: SOTALOL HCL 80MG TABLET PO SCH ×2 (10:00→22:00)
[2021-07-23] MEDS: MEGESTROL ACETATE 400 MG/10 ML UDC PO SCH (10:01)
[2021-07-23] MEDS: ARIPIPRAZOLE 5MG TABLET PO SCH ×2 (10:55→17:20)
[2021-07-23] MEDS ORDERED: PHENOL/SODIUM PHENOLATE 1.4% SRPAY 177ML MM NR (13:00)
[2021-07-23 14:19] LABS: NUCLEATED RED BLOOD CELLS 5 /100 WBC; PLATELET ESTIMATE MARKEDLY DECREASED
[2021-07-23] MEDS: FLUCONAZOLE 200 MG/100ML BAG 100 ML IV SCH (15:18)
[2021-07-23] MEDS: IPRATROPIUM/ALBUTEROL 0.5-3(2.5)MG/3ML NEB HHN SCH ×2 (15:21→20:12)
[2021-07-23] MEDS: ACETYLCYSTEINE 100MG/ML 10% VIAL 4ML INH SCH ×2 (15:21→20:12)
[2021-07-24] VITALS (23 sets, daily range): BP systolic 107–160; BP diastolic 50–91
[2021-07-24] MEDS: METOCLOPRAMIDE HCL 10MG/2ML VIAL IV SCH ×4 (00:25→18:10)
[2021-07-24] MEDS: BLOOD SUGAR DIAGNOSTIC STRIP TEST SCH ×4 (00:25→18:09)
[2021-07-24] MEDS: IPRATROPIUM/ALBUTEROL 0.5-3(2.5)MG/3ML NEB HHN SCH ×3 (02:15→15:09)
[2021-07-24] MEDS: LACTULOSE 20G/30ML UDC PO SCH ×4 (05:51→22:03)
[2021-07-24] MEDS: DEXTROSE 5% WATER 1,000 ML IV SCH (05:51)
[2021-07-24 06:49] LABS: INR 1.2; PROTHROMBIN TIME 12.4 sec (9.6-11.0)
[2021-07-24 06:57] LABS: BASOPHILS % 0.8 % (0.0-2.0); HEMATOCRIT. 27.1 % (42.0-52.0); HEMOGLOBIN. 8.5 g/dL (14.0-18.0); LYMPHOCYTES % 13.5 % (20.0-50.0); MEAN CORPUSCULAR HEMOGLOBIN 30.7 pg (28.0-32.0); MEAN CORPUSCULAR VOLUME 97.3 fL (80.0-94.0); MEAN PLATELET VOLUME 10.5 fl (7.4-10.4); MONOCYTES % 7.5 % (2.0-8.0); NEUTROPHILS % 76.2 % (40.0-76.0); PLATELET 52 x1000/uL (130-400); RED BLOOD CELL COUNT 2.78 mill/uL (4.7-6.1); RED CELL DISTRIBUTION WIDTH 23.3 % (11.6-14.6)
[2021-07-24 07:29] LABS: PHOSPHORUS 2.7 mg/dL (2.5-4.9)
[2021-07-24] MEDS: ACETYLCYSTEINE 100MG/ML 10% VIAL 4ML INH SCH (09:25)
[2021-07-24] MEDS: MEGESTROL ACETATE 400 MG/10 ML UDC PO SCH (10:08)
[2021-07-24] MEDS: ARIPIPRAZOLE 5MG TABLET PO SCH ×2 (10:08→16:08)
[2021-07-24] MEDS: MEMANTINE HCL 5MG TABLET PO SCH (10:08)
[2021-07-24] MEDS: PANTOPRAZOLE SODIUM 40 MG/VIAL IV SCH ×3 (10:08→22:03)
[2021-07-24] MEDS: SOTALOL HCL 80MG TABLET PO SCH ×2 (10:09→22:03)
[2021-07-24] MEDS ORDERED: HEPARIN 1000 UNITS/ML 10ML ONE (11:24)
[2021-07-24] MEDS ORDERED: LIDOCAINE HCL 1% 30ML VIAL (10MG/ML) ONE (11:24)
[2021-07-24] MEDS ORDERED: IOHEXOL-300 50 ML BOTTLE IV ONE (11:59)
[2021-07-24] MEDS ORDERED: FENTANYL CITRATE/PF 50MCG/ML 2ML VIAL IV ONE (12:15)
[2021-07-24] MEDS ORDERED: FENTANYL CITRATE/PF 50MCG/ML 2ML VIAL ONE (12:19)
[2021-07-24] MEDS: FLUCONAZOLE 200 MG/100ML BAG 100 ML IV SCH (13:19)
[2021-07-24 17:19] LABS: BASOPHILS % 1.1 % (0.0-2.0); EOSINOPHILS % 1.6 % (0.0-5.0); HEMATOCRIT. 25.4 % (42.0-52.0); HEMOGLOBIN. 8.3 g/dL (14.0-18.0); LYMPHOCYTES % 13.3 % (20.0-50.0); MEAN CORPUSCULAR HEMOGLOBIN 31.3 pg (28.0-32.0); MEAN PLATELET VOLUME 10.3 fl (7.4-10.4); MONOCYTES % 7.6 % (2.0-8.0); NEUTROPHILS % 76.4 % (40.0-76.0); RED BLOOD CELL COUNT 2.65 mill/uL (4.7-6.1); RED CELL DISTRIBUTION WIDTH 22.3 % (11.6-14.6)
[2021-07-24 17:22] LABS: PLATELET 49 x1000/uL (130-400)
[2021-07-24 17:28] LABS: INR 1.2; PROTHROMBIN TIME 12.6 sec (9.6-11.0)
[2021-07-24] MEDS: SORBITOL 70% SOLN 30ML PO NR (18:11)
[2021-07-25] VITALS (12 sets, daily range): BP systolic 105–167; BP diastolic 55–106
[2021-07-25] MEDS: METOCLOPRAMIDE HCL 10MG/2ML VIAL IV SCH ×3 (00:37→11:29)
[2021-07-25] MEDS: BLOOD SUGAR DIAGNOSTIC STRIP TEST SCH ×4 (00:42→17:05)
[2021-07-25 03:25] LABS: HEMATOCRIT. 30.3 % (42.0-52.0); HEMOGLOBIN. 9.2 g/dL (14.0-18.0); MEAN CORPUSCULAR HEMOGLOBIN 29.9 pg (28.0-32.0); MEAN CORPUSCULAR VOLUME 98.1 fL (80.0-94.0); MEAN PLATELET VOLUME 9.6 fl (7.4-10.4); PLATELET 71 x1000/uL (130-400); RED BLOOD CELL COUNT 3.09 mill/uL (4.7-6.1); RED CELL DISTRIBUTION WIDTH 23.5 % (11.6-14.6)
[2021-07-25 04:08] LABS: INR 1.2; PROTHROMBIN TIME 12.9 sec (9.6-11.0)
[2021-07-25] MEDS: LACTULOSE 20G/30ML UDC PO SCH ×2 (05:51→14:00)
[2021-07-25] MEDS: DEXTROSE 5% WATER 1,000 ML IV SCH (07:01)
[2021-07-25] MEDS: ACETYLCYSTEINE 100MG/ML 10% VIAL 4ML INH SCH ×2 (08:04→21:22)
[2021-07-25] MEDS: IPRATROPIUM/ALBUTEROL 0.5-3(2.5)MG/3ML NEB HHN SCH ×3 (08:05→21:23)
[2021-07-25] MEDS: PANTOPRAZOLE SODIUM 40 MG/VIAL IV SCH ×2 (08:11→21:00)
[2021-07-25] MEDS: ARIPIPRAZOLE 5MG TABLET PO SCH ×2 (08:11→17:06)
[2021-07-25] MEDS: SOTALOL HCL 80MG TABLET PO SCH ×2 (08:11→20:45)
[2021-07-25] MEDS: MEMANTINE HCL 5MG TABLET PO SCH (08:13)
[2021-07-25] MEDS: MEGESTROL ACETATE 400 MG/10 ML UDC PO SCH (08:13)
[2021-07-25] MEDS ORDERED: CEFAZOLIN 1000MG PREMIX 50 ML IV NR (11:00)
[2021-07-25] MEDS ORDERED: MIDAZOLAM HCL 5 MG/5 ML VIAL ONE (12:18)
[2021-07-25] MEDS ORDERED: MIDAZOLAM HCL 5 MG/5 ML VIAL IV PRN (12:18)
[2021-07-25] MEDS ORDERED: FENTANYL CITRATE/PF 50MCG/ML 2ML VIAL IV PRN (12:19)
[2021-07-25] MEDS ORDERED: FENTANYL CITRATE/PF 50MCG/ML 2ML VIAL ONE (12:19)
[2021-07-25 13:28] LABS: PLATELET ESTIMATE DECREASED
[2021-07-25] MEDS: FLUCONAZOLE 200 MG/100ML BAG 100 ML IV SCH (14:00)
[2021-07-25] MEDS ORDERED: ABIL5 PO (16:20)
[2021-07-25] MEDS ORDERED: FLUC100T GT (16:20)
[2021-07-25] MEDS: DEXTROSE 50% WATER 50ML SYRINGE IV PRN (17:05)
[2021-07-25] MEDS: SORBITOL 70% SOLN 30ML PO NR (18:00)
[2021-07-25 19:14] LABS: BG BASE EXCESS -2.5 mmol/L (-2.0-2.0); BG CARBOXYHEMOGLOBIN 1.8 % (0.5-1.5); BG DEOXYHEMOGLOBIN 2.8 % (0.0-5.0); BG FRACTION INSPIRED OXYGEN 28; BG HCO3 ACT 20.9 mmol/L (22.0-26.0); BG METHEMOGLOBIN 0.3 % (0.0-1.5); BG OXYGEN SATURATION 97.1 % (92.0-98.5); BG OXYHEMOGLOBIN 95.1 % (94.0-97.0); BG PCO2 30.6 mmHg (35.0-45.0); BG PH 7.452 (7.350-7.450); BG PO2 90.1 mmHg (75.0-100.0); BG SAMPLE SITE LEFT RADIAL; BG TOTAL HEMOGLOBIN 8.8 g/dL (12.0-18.0); BG VENT MODE NASAL CANNULA
[2021-07-26] VITALS (10 sets, daily range): BP systolic 110–133; BP diastolic 55–93
[2021-07-26] MEDS: IPRATROPIUM/ALBUTEROL 0.5-3(2.5)MG/3ML NEB HHN SCH ×4 (01:30→20:15)
[2021-07-26] MEDS: BLOOD SUGAR DIAGNOSTIC STRIP TEST SCH ×4 (05:46→17:57)
[2021-07-26] MEDS: METOCLOPRAMIDE HCL 10MG/2ML VIAL IV SCH ×3 (05:46→11:42)
[2021-07-26] MEDS: LACTULOSE 20G/30ML UDC PO SCH ×3 (06:31→15:03)
[2021-07-26 06:42] LABS: BASOPHILS % 1.1 % (0.0-2.0); EOSINOPHILS % 0.9 % (0.0-5.0); HEMATOCRIT. 25.9 % (42.0-52.0); HEMOGLOBIN. 8.1 g/dL (14.0-18.0); LYMPHOCYTES % 13.1 % (20.0-50.0); MEAN CORPUSCULAR HEMOGLOBIN 30.7 pg (28.0-32.0); MEAN PLATELET VOLUME 11.1 fl (7.4-10.4); MONOCYTES % 6.2 % (2.0-8.0); NEUTROPHILS % 78.7 % (40.0-76.0); PLATELET 76 x1000/uL (130-400); RED BLOOD CELL COUNT 2.64 mill/uL (4.7-6.1); RED CELL DISTRIBUTION WIDTH 23.1 % (11.6-14.6)
[2021-07-26] MEDS: PANTOPRAZOLE SODIUM 40 MG/VIAL IV SCH ×2 (07:31→11:42)
[2021-07-26] MEDS: DEXTROSE 5% WATER 1,000 ML IV SCH (07:31)
[2021-07-26] MEDS ORDERED: LIDOCAINE HCL 1% 10 MG/ML 10ML VIAL ONE ×2 (08:32→09:47)
[2021-07-26] MEDS ORDERED: SODIUM BICARBONATE 4% (2.4MEQ) 5ML VIAL IV ONE (08:58)
[2021-07-26] MEDS: MEGESTROL ACETATE 400 MG/10 ML UDC PO SCH (09:00)
[2021-07-26] MEDS ORDERED: FLUCONAZOLE 100MG TABLET PO SCH (09:00)
[2021-07-26] MEDS ORDERED: IOHEXOL-300 50 ML BOTTLE IV ONE (10:29)
[2021-07-26] MEDS: ARIPIPRAZOLE 5MG TABLET PO SCH ×2 (11:42→17:57)
[2021-07-26] MEDS: SOTALOL HCL 80MG TABLET PO SCH (11:43)
[2021-07-26] MEDS: MEMANTINE HCL 5MG TABLET PO SCH (11:44)
[2021-07-26] MEDS: SORBITOL 70% SOLN 30ML PO NR (17:57)
[2021-07-26] MEDS ORDERED: METOCLOPRAMIDE HCL 10MG/2ML VIAL IV SCH (18:00)
[2021-07-26] MEDS: ACETYLCYSTEINE 100MG/ML 10% VIAL 4ML INH SCH (20:16)
== END 2021-07-26 21:52 | DRG 871 ==
LOC: ER 10:35 → MICUSO 15:47 → EDBEDREQTM 16:14 → EDBEDREQ 16:14 → CVICU 07-03 11:53 → 3WST 07-08 12:33
PROVIDERS: ADMIT Family Medicine Adult Medicine; ATTEND Family Medicine Adult Medicine
PROC: 06HY33Z Insertion of Infusion Device into Lower Vein, Percutaneous Approach (ICD-10-PCS; principal; 2021-07-02)
PROC: 3E1M39Z Irrigation of Peritoneal Cavity using Dialysate, Percutaneous Approach (ICD-10-PCS; 2021-07-03)
PROC: 02HV33Z Insertion of Infusion Device into Superior Vena Cava, Percutaneous Approach (ICD-10-PCS; 2021-07-10)
PROC: B518ZZA Fluoroscopy of Superior Vena Cava, Guidance (ICD-10-PCS; 2021-07-10)
PROC: B548ZZA Ultrasonography of Superior Vena Cava, Guidance (ICD-10-PCS; 2021-07-10)
PROC: 5A1D70Z Performance of Urinary Filtration, Intermittent, Less than 6 Hours Per Day (ICD-10-PCS; 2021-07-10)
PROC: 5A1D70Z Performance of Urinary Filtration, Intermittent, Less than 6 Hours Per Day (ICD-10-PCS; 2021-07-12)
PROC: 30233N1 Transfusion of Nonautologous Red Blood Cells into Peripheral Vein, Percutaneous Approach (ICD-10-PCS; 2021-07-13)
PROC: 0WPGX3Z Removal of Infusion Device from Peritoneal Cavity, External Approach (ICD-10-PCS; 2021-07-14)
PROC: 30233K1 Transfusion of Nonautologous Frozen Plasma into Peripheral Vein, Percutaneous Approach (ICD-10-PCS; 2021-07-14)
PROC: 5A1D70Z Performance of Urinary Filtration, Intermittent, Less than 6 Hours Per Day (ICD-10-PCS; 2021-07-15)
PROC: 5A1D70Z Performance of Urinary Filtration, Intermittent, Less than 6 Hours Per Day (ICD-10-PCS; 2021-07-17)
PROC: 5A1D70Z Performance of Urinary Filtration, Intermittent, Less than 6 Hours Per Day (ICD-10-PCS; 2021-07-19)
PROC: 5A1D70Z Performance of Urinary Filtration, Intermittent, Less than 6 Hours Per Day (ICD-10-PCS; 2021-07-21)
PROC: 0JH63XZ Insertion of Tunneled Vascular Access Device into Chest Subcutaneous Tissue and Fascia, Percutaneous Approach (ICD-10-PCS; 2021-07-24)
PROC: 02HV33Z Insertion of Infusion Device into Superior Vena Cava, Percutaneous Approach (ICD-10-PCS; 2021-07-24)
PROC: B518ZZA Fluoroscopy of Superior Vena Cava, Guidance (ICD-10-PCS; 2021-07-24)
PROC: 30233R1 Transfusion of Nonautologous Platelets into Peripheral Vein, Percutaneous Approach (ICD-10-PCS; 2021-07-24)
PROC: 5A1D70Z Performance of Urinary Filtration, Intermittent, Less than 6 Hours Per Day (ICD-10-PCS; 2021-07-24)
PROC: 0DH63UZ Insertion of Feeding Device into Stomach, Percutaneous Approach (ICD-10-PCS; 2021-07-25)
PROC: 02HV33Z Insertion of Infusion Device into Superior Vena Cava, Percutaneous Approach (ICD-10-PCS; 2021-07-26)
PROC: B518ZZA Fluoroscopy of Superior Vena Cava, Guidance (ICD-10-PCS; 2021-07-26)
PROC: B548ZZA Ultrasonography of Superior Vena Cava, Guidance (ICD-10-PCS; 2021-07-26)
PROC: 0W9B3ZZ Drainage of Left Pleural Cavity, Percutaneous Approach (ICD-10-PCS; 2021-07-26)
PROC: 5A1D70Z Performance of Urinary Filtration, Intermittent, Less than 6 Hours Per Day (ICD-10-PCS; 2021-07-26)
DX: A41.9 Sepsis, unspecified organism (principal); N18.6 End stage renal disease; K65.8 Other peritonitis; E43 Unspecified severe protein-calorie malnutrition; R65.21 Severe sepsis with septic shock; J18.9 Pneumonia, unspecified organism; J96.01 Acute respiratory failure with hypoxia; G92.8 Other toxic encephalopathy; T85.71XA Infection and inflammatory reaction due to peritoneal dialysis catheter, initial encounter; I13.2 Hypertensive heart and chronic kidney disease with heart failure and with stage 5 chronic kidney disease, or end stage renal disease; I50.20 Unspecified systolic (congestive) heart failure; E87.1 Hypo-osmolality and hyponatremia; B37.89 Other sites of candidiasis; I42.9 Cardiomyopathy, unspecified; K56.7 Ileus, unspecified; A04.5 Campylobacter enteritis; D68.9 Coagulation defect, unspecified; E87.0 Hyperosmolality and hypernatremia; E87.2 Acidosis; K56.600 Partial intestinal obstruction, unspecified as to cause; K76.6 Portal hypertension; T82.818A Embolism due to vascular prosthetic devices, implants and grafts, initial encounter; K86.1 Other chronic pancreatitis; N39.0 Urinary tract infection, site not specified; K22.10 Ulcer of esophagus without bleeding; R00.1 Bradycardia, unspecified; F03.90 Unspecified dementia, unspecified severity, without behavioral disturbance, psychotic disturbance, mood disturbance, and anxiety; I27.20 Pulmonary hypertension, unspecified; E78.00 Pure hypercholesterolemia, unspecified; I48.91 Unspecified atrial fibrillation; E88.09 Other disorders of plasma-protein metabolism, not elsewhere classified; D64.9 Anemia, unspecified; N20.0 Calculus of kidney; I34.0 Nonrheumatic mitral (valve) insufficiency; E87.5 Hyperkalemia; E83.39 Other disorders of phosphorus metabolism; I44.0 Atrioventricular block, first degree; F17.210 Nicotine dependence, cigarettes, uncomplicated; K29.70 Gastritis, unspecified, without bleeding; K57.30 Diverticulosis of large intestine without perforation or abscess without bleeding; K64.9 Unspecified hemorrhoids; I44.7 Left bundle-branch block, unspecified; K74.60 Unspecified cirrhosis of liver; I25.10 Atherosclerotic heart disease of native coronary artery without angina pectoris; Y83.8 Other surgical procedures as the cause of abnormal reaction of the patient, or of later complication, without mention of misadventure at the time of the procedure; R13.12 Dysphagia, oropharyngeal phase; D69.6 Thrombocytopenia, unspecified; E87.6 Hypokalemia; K44.9 Diaphragmatic hernia without obstruction or gangrene; K70.9 Alcoholic liver disease, unspecified; Y83.2 Surgical operation with anastomosis, bypass or graft as the cause of abnormal reaction of the patient, or of later complication, without mention of misadventure at the time of the procedure; Z20.822 Contact with and (suspected) exposure to COVID-19; Z78.1 Physical restraint status; Z99.2 Dependence on renal dialysis; Z79.899 Other long term (current) drug therapy; Z79.82 Long term (current) use of aspirin; Z68.26 Body mass index [BMI] 26.0-26.9, adult; Z79.02 Long term (current) use of antithrombotics/antiplatelets; Y92.89 Other specified places as the place of occurrence of the external cause; Z85.46 Personal history of malignant neoplasm of prostate; T68.XXXA Hypothermia, initial encounter; E86.0 Dehydration
CPT/HCPCS: 32555; 36415; 36556; 36558; 36573; 36600; 71045; 74018; 74176; 76700; 76705; 76937; 77001; 80048; 80053; 80076; 80202; 82105; 82140; 82248; 82270; 82375; 82378; 82550; 82705; 82805; 82962; 83036; 83605; 83735; 83880; 84100; 84132; 84145; 84484; 85025; 85384; 86140; 86301; 86705; 86706; 86709; 86803; 86850; 86900; 86920; 86927; 87015; 87045; 87070; 87106; 87340; 87426; 87427; 87449; 87493; 88300; 89055; 92610; 93005; 93970; 93976; 94640; 94667; 97162; 97164; 97166; 97530; 99152; 99153; 99291; A6261; C1725; C1750; C1752; C1769; C1887; C9113; J0456; J0690; J0692; J0885; J1450; J1644; J2060; J2248; J2250; J2270; J2405; J2543; J2765; J2997; J3010; J3370; J3430; J3475; J3480; J3490; J7040; J7042; J7050; J7060; J7070; J7608; J8597; L8514; P9016; P9017; P9034; Q9963; Q9967; G0500